=== PATIENT | male | born 1960 | race Caucasian/White ===

== ENCOUNTER 2023-03-11 09:14 | Outpatient (CLI) | payer OTHER, SELFPAY ==
[2023-03-11 09:32] LABS: Basophils Absolute Auto 0.1 K/mm3 (0.0-0.1); Basophils Percent Auto 1.2 % (0.2-1.2); Eosinophils Absolute Auto 0.3 K/mm3 (0-0.3); Eosinophils Percent Auto 3.5 % (0-4.4); Hematocrit 48.3 % (42.0-52.0); Hemoglobin 16.8 g/dL (14.0-18.0); Immature Granulocyte Absolute 0.03 K/mm3 (0.00-0.031); Immature Granulocyte Percent A 0.4 % (0-0.5); Lymphocytes Absolute Auto 1.71 K/mm3 (0.9-3.2); Lymphocytes Percent Auto 21.9 % (18.3-44.2); Mean Corpuscular HGB Conc 34.8 g/dl (32-36); Mean Corpuscular Hemoglobin 31.6 pg (26-34); Mean Platelet Volume 8.7 fl (7.4-10.4); Monocytes Absolute Auto 0.8 K/mm3 (0.1-0.6); Monocytes Percent Auto 10.5 % (2.6-8.5); Neutrophils Absolute Auto 4.9 K/mm3 (1.3-6.7); Neutrophils Percent Auto 62.5 % (45.5-73.1); Platelet Count Result 252 k/mm3 (150-375); Red Blood Count 5.31 M/mm3 (4.6-6.20); Red Cell Distribution Width 12.7 % (11.5-14.5); White Blood Count 7.8 K/mm3 (4.5-10.0)
[2023-03-11 09:35] LABS: Blood Urea Nitrogen 19 mg/dL (8-26); Carbon Dioxide 23 mmol/L (22-30); Chloride 102 mmol/L (98-109); Estimated Glomerular Filt Rate > 60; Glucose 117 mg/dL (70-105); Ionized Calcium (POC) 0.97 mmol/L (1.11-1.31); Potassium 3.8 mmol/L (3.5-4.9); Sodium 138 mmol/L (138-146)
== END 2023-03-11 09:15 | disposition home or self-care (01) ==
LOC: ANHLAB 09:20
PROVIDERS: PCP Internal Medicine; Visit Provider Internal Medicine Hematology & Oncology
DX: D75.1 Secondary polycythemia (principal)
CPT/HCPCS: 36415; 80047; 85025

== ENCOUNTER 2023-12-09 09:13 | Outpatient (CLI) | payer OTHER, SELFPAY ==
[2023-12-09 09:30] LABS: Basophils Absolute Auto 0.1 K/mm3 (0.0-0.1); Eosinophils Absolute Auto 0.2 K/mm3 (0-0.3); Eosinophils Percent Auto 2.8 % (0-4.4); Hematocrit 47.3 % (42.0-52.0); Hemoglobin 16.5 g/dL (14.0-18.0); Immature Granulocyte Absolute 0.02 K/mm3 (0.00-0.031); Immature Granulocyte Percent A 0.3 % (0-0.5); Lymphocytes Absolute Auto 1.75 K/mm3 (0.9-3.2); Lymphocytes Percent Auto 24.2 % (18.3-44.2); Mean Corpuscular HGB Conc 34.9 g/dl (32-36); Mean Corpuscular Hemoglobin 31.6 pg (26-34); Mean Corpuscular Volume 90.6 fl (80-100); Mean Platelet Volume 8.8 fl (7.4-10.4); Monocytes Absolute Auto 0.8 K/mm3 (0.1-0.6); Monocytes Percent Auto 10.8 % (2.6-8.5); Neutrophils Absolute Auto 4.4 K/mm3 (1.3-6.7); Neutrophils Percent Auto 60.9 % (45.5-73.1); Platelet Count Result 269 k/mm3 (150-375); Red Blood Count 5.22 M/mm3 (4.6-6.20); Red Cell Distribution Width 12.8 % (11.5-14.5); White Blood Count 7.2 K/mm3 (4.5-10.0)
[2023-12-09 09:34] LABS: Blood Urea Nitrogen 22 mg/dL (8-26); Carbon Dioxide 22 mmol/L (22-30); Chloride 101 mmol/L (98-109); Estimated Glomerular Filt Rate > 60; Glucose 141 mg/dL (70-105); Ionized Calcium (POC) 1.13 mmol/L (1.11-1.31); Potassium 3.9 mmol/L (3.5-4.9); Sodium 137 mmol/L (138-146)
== END 2023-12-09 09:14 | disposition home or self-care (01) ==
LOC: ANHLAB 09:14
PROVIDERS: PCP Internal Medicine; Visit Provider Internal Medicine Hematology & Oncology
DX: D75.1 Secondary polycythemia (principal)
CPT/HCPCS: 36415; 80047; 85025

== ENCOUNTER 2024-12-10 08:03 | Outpatient (CLI) | payer OTHER, SELFPAY ==
--- OUTSIDE RECORDS SUMMARY | 2024-12-10 08:07 | XMS_ITS | Clinical Summary ---
Author Organization [facility] Address [address] [place] [address] Care Team Providers Care Environmental Analyst Name Role Phone Ada Apple MD Primary Care Provider Allergies No known active allergies Medications lisinopriL (PRINIVIL) 2.5 mg tablet lisinopril 2.5 mg tablet 09/02/19 20 Active hydroCHLOROth iazide (MICROZIDE) 12.5 mg capsule hydrochlorothiazide 12.5 mg capsule 01/20/20 18 Active metoprolol succinate (TOPROL XL) 25 mg Extended Release 24 hour tablet metoprolol succinate ER 25 mg tablet,extended release 24 hr 01/20/20 18 Active metFORMIN (GLUCOPHAGE) 500 mg tablet metformin 500 mg tablet 1 TABLETBY MOUTH EVERY OTHER DAY 01/28/20 18 Active rosuvastatin (CRESTOR) 40 mg tablet ROSUVASTATIN 40 MG* TAB NOVA 10/08/19 19 Active aspirin (ECOTRIN EC) 81 mg Tablet, Delayed Release (E.C.) Take by mouth. 01/19/20 19 Active nut.tx.gluc intol,lf,soy- fiber (Boost Glucose ControL) 0.06-1.1 gram-kcal/mL Liquid Boost 1 drink daily Active ezetimibe (ZETIA) 10 mg tablet 02/13/20 22 Active albuterol sulfate 90 mcg/Actuation inhaler albuterol sulfate HFA 90 mcg/actuation aerosol inhaler Active Active Problems Problem Noted Date Diagnosed Date Erythrocytosis 09/29/2020 Encounters Date Type Department Care Team Description 12/09/2024 Orders Only [facility] - [place] [address] [place] [id number] Rene Garcia MD Erythrocytosis (Primary Dx) from Last 3 Months Family History Medical History Relation Name Comments Diabetes Brother Lymphoma Brother Heart Disease Father Heart Disease Mother Relation Name Status Comments Brother Alive Father Mother Sister Alive Social History Tobacco Use Types Packs/Day Years Used Date Smoking Tobacco: Every Day Cigarettes 1 41 Started: 12/09/1983 Smokeless Tobacco: Never Tobacco Cessation:Ready to Q uit: Not Asked; Counseling Given: Not Answered Alcohol Use Standard Drinks/Week Comments Yes 0 (1 standard drink = 0.6 oz pur e alcohol) occasional Sex and Gender Information Value Date Recorded Sex Assigned at Not on file Legal 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 Gender Identity Not on file Sexual Orientation Not on file Last Filed Vital Signs Vital Sign Reading Time Taken Comments Blood Pressure 127/90 12/09/2023 9:33 AM CDT Pulse 74 12/09/2023 9:32 AM CDT Temperature 35.7 C (96.3 F) 12/09/2023 9:32 AM CDT Respiratory Rate 14 12/09/2023 9:32 AM CDT Oxygen Saturation 97% 12/09/2023 9:32 AM CDT Inhaled Oxygen Concentration - - Weight 81.6 kg (180 lb) 12/09/2023 9:32 AM CDT Height 172.7 cm (5' 8 ) 03/07/2022 3:33 PM CDT Body Mass Index 27.37 03/07/2022 3:33 PM CDT Plan of Treatment Upcoming Encounters Date Type Department Care Team (Late st Contact Info) Description 12/10/2024 8:30 AM CDT Office Visit [facility] - [place] [address] [facility] [address] [place] [address] Rene Garcia MD [address] [facility] [address] [place] [address] Health Maintenance Due Date Last Done Comments DIABETES ANNUAL FOOT EXAM 1978 DIABETES ANNUAL RETINAL EXAM 1978 DIABETES HBA1C Q 6 MONTHS 1978 DIABETES MICROALBUMIN ANNUAL SCREEN 1978 LDL CHOLESTEROL ANNUAL 1978 DTAP/TDAP/TD VACCINES (1 - Tdap) 1979 COLORECTAL SCREENING 2005 Colorectal Cancer Screening 2005 FIT-DNA Q 3 years 2005 FIT/FOBT Q 1 year 2005 Flex Sig/CT Colonography Q 5 years 2005 Lung Cancer Screening 2010 ZOSTER VACCINE (1 of 2) 2010 INFLUENZA VACCINE (#1) 2024 RSV VACCINE (60+ or ) (1 - 1-dose 75+ series) 2035 Insurance [employer] CHOICE POS II Care Teams Environmental Analyst Relationship Specialty Start Date End Date Ada Apple MD PCP - General Internal Medicine 09/29/20
--- OUTSIDE RECORDS SUMMARY | 2024-12-10 08:07 | XMS_ITS | Data Portability ---
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 His flare-up going up and down a hill numerous times in late May is fairly typical for patellofemoral symptom exacerbation. I have recommended he consider again a course of physical therapy and he is going to pursue this. We talked about the option of a cortisone shot today but since his symptoms are minimal he is content to observe. We can always give him a cortisone shot in the future if he has a flare-up of symptoms I am happy to see him back as needed. Hopefully with course of physical therapy improving the flexibility of his quadriceps and hamstrings and improving strength of his hip abduction external rotation core strengthening he may have less problems with patellofemoral joint flare-ups in the future. Recheck p.r.n.. 20 minutes were spent in care of this patient more than half the time spent in [id number] care. [email or web address] Not available 08/24/2023 19:28:13 09/29/2023 09/29/2023 Assessment: Nicotine smoke: 1 ppd 1977-present = 46 pack years Cough Dyspnea Mild COPD Plan: The following were reviewed and explained to the patient: primary care/referral note PFT 10/16/17 FEV1 2.94 L (89%), BD 280 mL = 10%, TLC 5.93 L (96%), RV 1.85 L (84%), DLCO 100%, DLCO/VA 115% Nicotine cessation counseling provided for 4 minutes. [place] for quitting nicotine include getting ready, getting support and encouragement, learning new skills and behaviors and being prepared to handle slips. Tips for dealing with cravings provided. Prevention of subsequent illnesses from nicotine addiction discussed. Comorbidities include but are not limited to hypertension, cerebrovascular disease, coronary heart disease, congestive heart failure, hyperlipidemia, COPD/asthma, peptic ulcer disease, esophagitis/gastri tis, and osteoporosis. Therapy options offered include: Quitting by total abstinence Receiving nicotine replacement therapy Undergoing hypnosis Filling a bupropion or varenicline prescription Enrolling in Quit For Life program Registering at www.[email or web address] Making a call to 1-340-GLNW-NOW ( ). A strong, clear, personalized message was given to the patient to quit smoking. The patient was urged to set a quit date. We discussed patient's barriers to quitting and I will be of assistance when patient is ready to quit. I encouraged patient to inform friends and family of plans to quit with a request for support. I encouraged the patient to remove all cigarettes from the environment. We reviewed any previous quit attempts and lessons learned from them. I encouraged total abstinence from smoking and advised the patient that drinking alcohol and/or associating with other smokers are associated with failure or relapse. Patient can enroll in [facility]'s smoking cessation class through Nichole Conti RN at . Enrollment is free and classes are held every friday of the month from 1:30 pm to 2:30 pm at the conference room next to the cafeteria on the ground floor. The [employer] recommends annual screening for lung cancer with low-dose computed tomography (LDCT) for people aged 50 to 80 years old who smoke or formerly smoked and have a 20-year or greater pack-year history. Screening is no longer discontinued even when a person has not smoked for 15 years. Patient declined LDCT as he had a copay of $500 with his insurance the last time the procedure was done. Cough/Dyspnea workup will be done as follows: Respiratory allergen panel for [facility] Serum IgE Serum total IgG, IgG1, IgG2, IgG3, IgG4 Yjkpx-[id number] n phenotype and level TB stimulated gamma interferon B-type natriuretic peptide (BNP) Eosinophil count Complete pulmonary function testing (PFT) Chest x-ray 2 views Continue albuterol HFA as needed. The patient does not know how to accurately administer the inhaler. Today, the patient was shown how to take this medication. The proper technique for delivering this medication was instructed. The patient expressed a clear understanding and demonstrated back how to use this medication. Without the proper technique, the patient will not reap the benefits of the treatment as the contents of the inhaler will not reach the lower airways as intended to be. Adherence to therapy is advocated. Nonadherence may lead to treatment failure, further progression of the condition, and other complications. Hospitals admissions are often the result of individuals not taking prescription medications accurately. Alternatively, greater adherence to medication regimens have shown to lower rates of hospitalization and decrease total medical costs in patients with chronic medical conditions. Advocated influenza vaccination annually and pneumonia vaccination IRAIDA. Advocated weight loss through diet and exercise. Patient's ideal body weight according to height and gender is up to 165 lbs. Encouraged patient to adjust caloric intake to maintain/achieve ideal body weight, emphasizing on fruits, vegetables, whole grains, and fat-free or low-fat products. These include lean meats, poultry, fish, beans, eggs, and nuts and foods that are low in saturated fats, trans-fats, cholesterol, salt (sodium), and glycemic index. Stressed the importance of regular exercise up to the patient's capacity limits. In this case, we recommend 20 min daily walking, 2 days a week of resistance training. Patient to monitor BP daily and bring records to PCP for further management. Follow-up: 1 week after PFT Not available 09/29/2023 09:17:47 01/06/2024 01/06/2024 07/08/2022: Urine micro alb 6.8 A1C 5.9 CBC: WNL PSA 1.28 TSH: WNL CMP: Gluc 115, BUN 23 LIPIDS: WNL 01/03/2023: A1C 5.7 Gluc 116 07/03/2023: PSA 1.33 A1C 5.9 Gluc 118, BUN 24H 01/01/2024: A1C 5.9 Gluc 114, BUN 22 [email or web address] Not available 01/04/2024 13:23:56 02/24/2024 02/24/2024 Assessment: Nicotine smoke: 1 ppd 1977-present = 46 pack years Mild COPD Plan: The following were reviewed and explained to the patient: Lab data 09/30/23 multiple environmental allergies Chest 2 views 09/30/23 wnl PFT 10/16/17 FEV1 2.94 L (89%), BD 280 mL = 10%, TLC 5.93 L (96%), RV 1.85 L (84%), DLCO 100%, DLCO/VA 115% PFT 02/24/24 FEV1 2.30 L (73%), BD 200 mL = 9%, TLC 5.27 L (86%), RV 1.75 L (77%), DLCO 87%, DLCO/VA 98% Nicotine cessation counseling provided. [place] for quitting nicotine include getting ready, getting support and encouragement, learning new skills and behaviors and being prepared to handle slips. Tips for dealing with cravings provided. Prevention of subsequent illnesses from nicotine addiction discussed. Comorbidities include but are not limited to hypertension, cerebrovascular disease, coronary heart disease, congestive heart failure, hyperlipidemia, COPD/asthma, peptic ulcer disease, esophagitis/gastri tis, and osteoporosis. Therapy options offered include: Quitting by total abstinence Receiving nicotine replacement therapy Undergoing hypnosis Filling a bupropion or varenicline prescription Enrolling in Quit For Life program Registering at [email or web address].digitalbox Making a call to 9-327-DQDK-NOW ( ). A strong, clear, personalized message was given to the patient to quit smoking. The patient was urged to set a quit date. We discussed patient's barriers to quitting and I will be of assistance when patient is ready to quit. I encouraged patient to inform friends and family of plans to quit with a request for support. I encouraged the patient to remove all cigarettes from the environment. We reviewed any previous quit attempts and lessons learned from them. I encouraged total abstinence from smoking and advised the patient that drinking alcohol and/or associating with other smokers are associated with failure or relapse. Patient can enroll in [facility]'s smoking cessation class through Nichole Conti RN at . Enrollment is free and classes are held every friday of the month from 1:30 pm to 2:30 pm at the conference room next to the cafeteria on the ground floor. The [employer] recommends annual screening for lung cancer with low-dose computed tomography (LDCT) for people aged 50 to 80 years old who smoke or formerly smoked and have a 20-year or greater pack-year history. Screening is no longer discontinued even when a person has not smoked for 15 years. Patient declined LDCT as he had a copay of $500 with his insurance the last time the procedure was done. Complete PFTs one week before return. Start Spiriva Respimat 2.5 mcg 2 puffs daily. Continue albuterol HFA as needed. The patient does not know how to accurately administer the inhalers. Today, the patient was shown how to take these medications. The proper technique for delivering these medications was instructed. The patient expressed a clear understanding and demonstrated back how to use these medications. Without the proper technique, the patient will not reap the benefits of these medications as the contents will not reach the lower airways as intended to be. Adherence to therapy is advocated. Nonadherence may lead to treatment failure, further progression of the condition, and other complications. Hospitals admissions are often the result of individuals not taking prescription medications accurately. Alternatively, greater adherence to medication regimens have shown to lower rates of hospitalization and decrease total medical costs in patients with chronic medical conditions. Advocated influenza vaccination annually and pneumonia vaccination IRAIDA. Advocated weight loss through diet and exercise. Patient's ideal body weight according to height and gender is up to 165 lbs. Encouraged patient to adjust caloric intake to maintain/achieve ideal body weight, emphasizing on fruits, vegetables, whole grains, and fat-free or low-fat products. These include lean meats, poultry, fish, beans, eggs, and nuts and foods that are low in saturated fats, trans-fats, cholesterol, salt (sodium), and glycemic index. Stressed the importance of regular exercise up to the patient's capacity limits. In this case, we recommend 20 min daily walking, 2 days a week of resistance training. Patient to monitor BP daily and bring records to PCP for further management. Follow-up: 1 year, February 2025 Not available 02/24/2024 10:55:32 07/06/2024 07/06/2024 07/08/2022: Urine micro alb 6.8 A1C 5.9 CBC: WNL PSA 1.28 TSH: WNL CMP: Gluc 115, BUN 23 LIPIDS: WNL 01/03/2023: A1C 5.7 Gluc 116 07/03/2023: PSA 1.33 A1C 5.9 Gluc 118, BUN 24H 01/01/2024: A1C 5.9 Gluc 114, BUN 22 06/30/2024: A1c 6.1 Gluc 119, BUN 21 H/H 17.2/50.7 [email or web address] Not available 07/04/2024 15:18:22 Plan of Treatment Reminders Order Date Submit Date Provider Last Modified By Organization Details Last Modified Time Details Appointments Any 15 2024 08:30A Lance patel MD Not available Not available Not available Any 15 2024 08:00A M Annmarie Britton MD Not available Not available Not available Lab glycohemo globin, total, blood [address] (Lab), [address] [place], [address], 07/06/2024 09:59:50 microalbu min, urine [address] (Lab), [address] [place], [address], 07/06/2024 09:59:50 lipid panel, serum [address] (Lab), [address] [place], [address], 07/06/2024 09:59:49 TSH, serum or plasma [address] (Lab), [address] [place], [address], 07/06/2024 09:59:49 CBC w/ auto diff [address] (Lab), [address] [place], [address], 07/06/2024 09:59:49 CMP, serum or plasma [address] (Lab), [address] [place], [address], 07/06/2024 09:59:50 glycohemo globin, total, blood 2023 024 [facility] (Lab), [address] [place], [address], 06/30/2024 19:26:42 microalbu min, urine 2023 024 [facility] (Lab), [address] [place], [address], 06/30/2024 11:22:59 lipid panel, serum 2023 024 [facility] (Lab), [address] [place], [address], 06/30/2024 11:20:51 TSH, serum or plasma 2023 024 [facility] (Lab), [address] [place], [address], 06/30/2024 11:35:30 CBC w/ auto diff 2023 024 [facility] (Lab), [address] [place], [address], 06/30/2024 10:48:44 CMP, serum or plasma 2023 024 [facility] (Lab), [address] [place], [address], 06/30/2024 11:20:56 alpha-1-a ntitrypsi n (aat) phenotype , serum 2023 024 [facility] (Lab), [address] [place], [address], 10/09/2023 16:30:08 BNP (B-type natriuret ic peptide), serum or plasma 2023 024 [facility] (Lab), [address] [place], [address], 09/30/2023 11:57:31 ige, total, serum 2023 024 [email or web address] 5 [facility] (Lab), [address] [place], [address], 12/16/2023 11:25:45 tb (M tuberculo sis), ifn-gamma ann, blood 2023 024 [email or web address] 5 [facility] (Lab), [address] [place], [address], 12/16/2023 11:25:45 eosinophi l count, manual, blood (OBS) 2023 024 [email or web address] 5 [facility] (Lab), [address] [place], [address], 12/16/2023 11:25:45 [address]cl[address] s 1+2+3+4, serum 2023 024 [email or web address] 5 [facility] (Lab), [address] [place], [address], 12/16/2023 11:25:45 respirato ry allergen panel - [facility] 2023 024 [email or web address] 5 [facility] (Lab), [address] [place], [address], 12/16/2023 11:25:45 respirato ry allergen panel - [facility] b 2023 024 [email or web address] 5 [facility] (Lab), [address] [place], [address], 12/16/2023 11:25:45 Referral hematolog ist referral 2023 024 [email or web address] Rene Garcia MD, [address], [place], [address], 07/06/2024 19:13:11 cardiolog ist referral 2023 024 [place], [address] Yoanna Lemons, [address], [address], 07/06/2024 19:13:10 podiatris t referral - Please call patient to schedule. 2023 024 [email or web address] Joshua Carr DPM, [address], [place], [address], 10/12/2024 09:21:01 hematolog ist referral 2023 024 [email or web address] Rene Garcia MD, [address], [place], [address], 08/05/2024 08:52:20 cardiolog ist referral 2023 024 [email or web address] [place], [address] Yoanna Lemons, [address], [place], [address], 07/05/2024 09:07:54 podiatris t referral 2023 024 [email or web address] Carr DPM, [address], [address], [place], [address], 10/12/2024 09:21:00 pulmonolo gist referral 2023 024 [email or web address] Annmarie Britton MD, [address] [place], [address], 08/05/2024 08:52:19 Procedures None recorded. Surgeries None recorded. Imaging XR, chest, 2 view 2023 024 [facility] ([facility]), [address] [place], [address], 09/30/2023 11:16:55 Medication Orders albuterol sulfate HFA 90 mcg/actua tion aerosol inhaler 2023 024 [facility] #[id number], [address], [place], [address], 07/06/2024 09:21:43 Spiriva Respimat 2.5 mcg/actua tion solution for inhalatio n [id number], [address], [place], [address], 07/06/2024 09:22:14 amoxicill in 875 mg-potass ium clavulana te 125 mg tablet 2023 024 [email or web address] [id number], [address], [place], [address], 02/24/2024 10:18:59 Patient TargetsNo targets recorded. Patient Instructions Encounter Date Encounter Id Patient Instructions Last Modified By Organization Details Last Modified Time 09/29/2023 [id number] complete PFT w/ post bronchodilator spirometry* - No Auth Required [place] Not available 02/27/2024 12:49:15 02/24/2024 [id number] complete PFT w/ post bronchodilator spirometry* Not available 02/24/2024 10:55:50 Reason for Referral Linux System Administrator Referral for Type 2 diabetes mellitus without complication Referring Physician: Ada Apple, Internal Medicine, Encounter Date: 01/06/2024 Upholsterer Assembly Line Referral for Es sential hypertension Referring Physician: Ada Apple Internal Medicine, Encounter Date: 01/06/2024 Bottom Loader Referral for C igarette smoker Referring Physician: Ada Apple Internal Medicine, Encounter Date: 01/06/2024 Referring Physician: Ada Apple Internal Medicine, Encounter Date: 01/06/2024 Linux System Administrator Referral for Type 2 diabetes mellitus without complication Please call patient to schedule. Referring Physician: Ada Apple Internal Medicine, Encounter Date: 07/06/2024 Upholsterer Assembly Line Referral for Es sential hypertension Referring Physician: Ada Apple Internal Medicine, Encounter Date: 07/06/2024 Referring Physician: Ada Apple Internal Medicine, Encounter Date: 07/06/2024 Results Created Date Observation Date Name Description Value Unit Range Abnormal Flag Note LastModifiedBy Organization Detail LastModifiedTime 01/01/20 24 01/01/2024 CBC/C OMPLE TE BLD COUNT W/DIF F white blood cells 7.6 x10'3 /uL 4.2-10 .8 Not Available [facility] (Lab) [address] [place], [address], 01/01/2024 10:58:38 01/01/20 24 01/01/2024 CBC/C OMPLE TE BLD COUNT W/DIF F red blood cells 5.37 x10'6 /uL 4.10-5 .80 Not Available [facility] (Lab) [address] [place], [address], 01/01/2024 10:58:38 01/01/20 24 01/01/2024 CBC/C OMPLE TE BLD COUNT W/DIF F hemoglobin 17.0 g/dL 13.2-1 7.0 Not Available [facility] (Lab) [address] [place], [address], 01/01/2024 10:58:38 01/01/20 24 01/01/2024 CBC/C OMPLE TE BLD COUNT W/DIF F hematocrit 49.7 % 39.3-5 0.0 Not Available [facility] (Lab) [address] [place], [address], 01/01/2024 10:58:38 01/01/20 24 01/01/2024 CBC/C OMPLE TE BLD COUNT W/DIF F mean red cell volume 92.6 fL 80.0-9 7.0 Not Available [facility] (Lab) [address] [place], [address], 01/01/2024 10:58:38 01/01/20 24 01/01/2024 CBC/C OMPLE TE BLD COUNT W/DIF F mean red cell hemoglobin 31.7 pg 27.0-3 3.0 Not Available [facility] (Lab) [address] [place], [address], 01/01/2024 10:58:38 01/01/20 24 01/01/2024 CBC/C OMPLE TE BLD COUNT W/DIF F mean RBC HGB concentratio n 34.2 g/dL 31.0-3 6.0 Not Available [facility] (Lab) [address] [place], [address], 01/01/2024 10:58:38 01/01/20 24 01/01/2024 CBC/C OMPLE TE BLD COUNT W/DIF F red cell distribution width 12.7 % 11.8-1 5.5 Not Available [facility] (Lab) [address] [place], [address], 01/01/2024 10:58:38 01/01/20 24 01/01/2024 CBC/C OMPLE TE BLD COUNT W/DIF F platelets 273 x10'3 /uL 150-40 0 Not Available [facility] (Lab) [address] [place], [address], 01/01/2024 10:58:38 01/01/20 24 01/01/2024 CBC/C OMPLE TE BLD COUNT W/DIF F mean platelet volume 9.4 fL 9.0-12 .4 Not Available [facility] (Lab) [address] [place], [address], 01/01/2024 10:58:38 01/01/20 24 01/01/2024 CBC/C OMPLE TE BLD COUNT W/DIF F neutrophils 63.4 % 39.0-7 2.0 Not Available [facility] (Lab) [address] [place], [address], 01/01/2024 10:58:38 01/01/20 24 01/01/2024 CBC/C OMPLE TE BLD COUNT W/DIF F lymphocytes 20.5 % 16.0-4 7.0 Not Available [facility] (Lab) [address] [place], [address], 01/01/2024 10:58:38 01/01/20 24 01/01/2024 CBC/C OMPLE TE BLD COUNT W/DIF F monocytes 10.3 % 5.0-12 .0 Not Available [facility] (Lab) [address] [place], [address], 01/01/2024 10:58:38 01/01/20 24 01/01/2024 CBC/C OMPLE TE BLD COUNT W/DIF F eosinophils 4.1 % 1.0-7. 0 Not Available [facility] (Lab) [address] [place], [address], 01/01/2024 10:58:38 01/01/20 24 01/01/2024 CBC/C OMPLE TE BLD COUNT W/DIF F basophils 1.2 % 0.0-2. 0 Not Available [facility] (Lab) [address] [place], [address], 01/01/2024 10:58:38 01/01/20 24 01/01/2024 CBC/C OMPLE TE BLD COUNT W/DIF F immature granulocytes 0.5 % 0.00-0 .50 Not Available [facility] (Lab) [address] [place], [address], 01/01/2024 10:58:38 01/01/20 24 01/01/2024 CBC/C OMPLE TE BLD COUNT W/DIF F neutrophils, absolute count 4.82 x10'3 /uL 1.5-8. 0 Not Available [facility] (Lab) [address] [place], [address], 01/01/2024 10:58:38 01/01/20 24 01/01/2024 CBC/C OMPLE TE BLD COUNT W/DIF F lymphocytes, absolute count 1.56 x10'3 /uL 1.07-3 .43 Not Available [facility] (Lab) [address] [place], [address], 01/01/2024 10:58:38 01/01/20 24 01/01/2024 CBC/C OMPLE TE BLD COUNT W/DIF F monocytes, absolute count 0.78 x10'3 /uL 0.29-0 .99 Not Available [facility] (Lab) [address] [place], [address], 01/01/2024 10:58:38 01/01/20 24 01/01/2024 CBC/C OMPLE TE BLD COUNT W/DIF F eosinophils, absolute count 0.31 x10'3 /uL 0.02-0 .53 Not Available [facility] (Lab) [address] [place], [address], 01/01/2024 10:58:38 01/01/20 24 01/01/2024 CBC/C OMPLE TE BLD COUNT W/DIF F basophils, absolute count 0.09 x10'3 /uL 0.01-0 .08 high Not Available [facility] (Lab) [address] [place], [address], 01/01/2024 10:58:38 01/01/20 24 01/01/2024 CBC/C OMPLE TE BLD COUNT W/DIF F immature granulocytes ,absolute 0.04 x10'3 /uL 0.00-0 .05 Not Available [facility] (Lab) [address] [place], [address], 01/01/2024 10:58:38 01/01/20 24 01/01/2024 CBC/C OMPLE TE BLD COUNT W/DIF F nucleated red blood cells 0.0 % -0 Not Available [facility] (Lab) [address] [place], [address], 01/01/2024 10:58:38 01/01/20 24 01/01/2024 CBC/C OMPLE TE BLD COUNT W/DIF F NRBC# 0.00 x10'3 /uL Not Available [facility] (Lab) [address] [place], [address], 01/01/2024 10:58:38 01/01/20 24 01/01/2024 MICRO ALBUM IN RANDO M URINE microalbumin , urine <6.0 mg/L 0.0-16 .6 Not Available [facility] (Lab) [address] [place], [address], 01/01/2024 11:03:22 01/01/20 24 01/01/2024 LIPID PANEL cholesterol 106 mg/dL 140-19 9 low NIH DOUGLAS NSUS RECOM MENDA TION FOR PRAVIN STERO L: ADULT CHILD LOW RISK: <200 <170 BORDE RLINE : <200- 239 ----- HIGH RISK: >240 >200 Not Available [facility] (Lab) [address] [place], [address], 01/01/2024 11:14:42 01/01/20 24 01/01/2024 LIPID PANEL triglyceride s 102 mg/dL 0-150 NIH DOUGLAS NSUS REPOR T RECOM MENDA TION FOR TRIGL YCERI YAHIR: ADULT CHILD LOW RISK: <150 ----- BODER LINE: 150-1 99 ----- HIGH RISK: >200 ----- Not Available [facility] (Lab) [address] [place], [address], 01/01/2024 11:14:42 01/01/20 24 01/01/2024 LIPID PANEL HDL cholesterol 46 mg/dL 40- Not Available [facility] (Lab) [address] [place], [address], 01/01/2024 11:14:42 01/01/20 24 01/01/2024 LIPID PANEL LDL cholesterol, calculated 40 mg/dL 0-130 NIH DOUGLAS NSUS REPOR T RECOM MENDA TIONS FOR LDL: ADULT CHILD LOW RISK <130 <110 (OPTI MAL LDL) <100 ----- DAWSONDE RLINE : 130-1 59 ----- HIGH RISK: >160 >130 A TRIGL YCERI DE RESUL T >400 INVAL IDATE S THE CALCU LATIO N FOR LDL FRACT IONAT ION - THE LDL RESUL T WILL NOT BE REPOR VALENCIA. Not Available [facility] (Lab) [address] [place], [address], 01/01/2024 11:14:42 01/01/20 24 01/01/2024 COMPR EHENS KAYCE METAB OLIC PANEL sodium 136 mmol/ L 137-14 5 low Not Available [facility] (Lab) [address] [place], [address], 01/01/2024 11:14:47 01/01/20 24 01/01/2024 COMPR EHENS KAYCE METAB OLIC PANEL potassium 4.3 mmol/ L 3.5-5. 1 Not Available [facility] (Lab) [address] [place], [address], 01/01/2024 11:14:47 01/01/20 24 01/01/2024 COMPR EHENS KAYCE METAB OLIC PANEL chloride 105 mmol/ L 98-107 Not Available [facility] (Lab) [address] [place], [address], 01/01/2024 11:14:47 01/01/20 24 01/01/2024 COMPR EHENS KAYCE METAB OLIC PANEL carbon dioxide 25 mmol/ L 22-30 Not Available [facility] (Lab) [address] [place], [address], 01/01/2024 11:14:47 01/01/20 24 01/01/2024 COMPR EHENS KAYCE METAB OLIC PANEL anion gap 10.3 mmol/ L 14-22 low Not Available [facility] (Lab) [address] [place], [address], 01/01/2024 11:14:47 01/01/20 24 01/01/2024 COMPR EHENS KAYCE METAB OLIC PANEL glucose 114 mg/dL 70-99 high Not Available [facility] (Lab) [address] [place], [address], 01/01/2024 11:14:47 01/01/20 24 01/01/2024 COMPR EHENS KAYCE METAB OLIC PANEL BUN 22 mg/dL 8-19 high Not Available [facility] (Lab) [address] [place], [address], 01/01/2024 11:14:47 01/01/20 24 01/01/2024 COMPR EHENS KAYCE METAB OLIC PANEL creatinine 1.04 mg/dL 0.66-1 .25 Not Available [facility] (Lab) [address] [place], [address], 01/01/2024 11:14:47 01/01/20 24 01/01/2024 COMPR EHENS KAYCE METAB OLIC PANEL GFR >60 Refer ence Range : [place] ge GFR Healt hy Adult : >60 mL/mi n/1.7 3 m2 Chron ic Kidne y Disea se: 15-60 mL/mi n/1.7 3 m2 Kidne y Failu re: <15/m L/min /1.73 m2 www.n iddk. nih.g ov The MDRD study equat ion has not been valid ated in child astrid <18 years of age; pregn ant women ; the elder ly >85 years of age; or in some racia l or ethni c subgr oups, such as Hispa nics. Outsi de the valid ated carolyn eters , estim ated GFR is less accur ate, requi ring clini delbert judgm ent on a case- by-ca se basis . Clini delbert inter preta tion for other races and ages must be made by the clini khadar. The MDRD study equat ion has not been valid ated for the evalu ation of serum creat inine relat ed to nutri shahzad l statu s or medic ation usage . For perso ns <18 years of age, a pedia tric GFR calcu lator is avail able on the [facility] websi te: https ://kj sellers.shanti garcía/beny mirandaal s/levo qi/gf r_cal culat or Not Available [facility] (Lab) [address] [place], [address], 01/01/2024 11:14:47 01/01/20 24 01/01/2024 COMPR EHENS KAYCE METAB OLIC PANEL alkaline phosphatase 92 U/L 38-126 Not Available [facility] (Lab) [address] [place], [address], 01/01/2024 11:14:47 01/01/20 24 01/01/2024 COMPR EHENS KAYCE METAB OLIC PANEL alanine aminotransfe rase 29 U/L 0-50 Not Available [facility] (Lab) [address] [place], [address], 01/01/2024 11:14:47 01/01/20 24 01/01/2024 COMPR EHENS KAYCE METAB OLIC PANEL aspartate aminotransfe rase 29 U/L 15-46 Not Available [facility] (Lab) [address] [place], [address], 01/01/2024 11:14:47 01/01/20 24 01/01/2024 COMPR EHENS KAYCE METAB OLIC PANEL bilirubin, total 0.70 mg/dL 0.20-1 .30 Not Available [facility] (Lab) [address] [place], [address], 01/01/2024 11:14:47 01/01/20 24 01/01/2024 COMPR EHENS KAYCE METAB OLIC PANEL calcium 9.2 mg/dL 8.4-10 .2 Not Available [facility] (Lab) [address] [place], [address], 01/01/2024 11:14:47 01/01/20 24 01/01/2024 COMPR EHENS KAYCE METAB OLIC PANEL total protein 6.6 g/dL 6.3-8. 2 Not Available [facility] (Lab) [address] [place], [address], 01/01/2024 11:14:47 01/01/20 24 01/01/2024 COMPR EHENS KAYCE METAB OLIC PANEL albumin 4.1 g/dL 3.0-4. 4 Not Available [facility] (Lab) [address] [place], [address], 01/01/2024 11:14:47 01/01/20 24 01/01/2024 COMPR EHENS KAYCE METAB OLIC PANEL globulin 2.5 g/dL 2.6-4. 2 low Not Available [facility] (Lab) [address] [place], [address], 01/01/2024 11:14:47 01/01/20 24 01/01/2024 COMPR EHENS KAYCE METAB OLIC PANEL A/G ratio 1.6 ratio 1.0-2. 0 Not Available [facility] (Lab) [address] [place], [address], 01/01/2024 11:14:47 01/01/20 24 01/01/2024 TSH W/REF ABDOULAYE FT4 TSH with reflex free T4 1.860 uIU/m L 0.465- 4.680 Not Available [facility] (Lab) [address] [place], [address], 01/01/2024 11:54:04 01/01/20 24 01/01/2024 HEMOG LOBIN A1C HA1C 5.9 % 4.0-6. 0 Diabe ruby Scree florina Crite ric: <5.7% Consi stent with absen ce of diabe ruby 5.7-6 .4% Consi stent with incre ased risk for diabe ruby (pred iabet es) >OR=6 .5% Consi stent with diabe ruby REFER ENCE: Diabe ruby Care 2016, 39(Cervantes ppl.1 ):s13 -s22 Not Available [facility] (Lab) [address] [place], [address], 01/01/2024 11:57:03 09/24/19 24 10/16/2017 compl ete PFT w/ post [facility] hodil ator zoe metry * No observ ation record ed. BARCODE Not Available 2023 10:42:48 09/30/19 24 09/30/2023 XR, chest , 2 view No observ ation record ed. [facility] [address] [place], [address], 09/30/2023 13:31:17 09/30/19 24 09/30/2023 imagi ng/di agnos tic resul t No observ ation record ed. LOLA [facility] [address] [place], [address], 09/30/2023 11:18:10 02/27/20 24 02/24/2024 compl ete PFT w/ post [facility] hodil ator zoe metry * No observ ation record ed. [facility] ([employer]) [address] [place], [address], 02/27/2024 12:49:15 Result Notes None recorded. Problems Name Problem SNOMED Code Status Onset Date Resolution Date Notes Provider Name and Address Organization Details Recorded Time Benign prostatic hyperplas ia with outflow obstructi on 598098244 Active Not Available [facility] 3 03:14:16 Diverticu litis 051979207 Active 2016 had part of colon removed around 2009 and has no problems since Not Available [facility] 3 03:14:16 Hyperlipi demia 45942857 Active Not Available [facility] 3 03:14:16 Essential hypertens ion 12449561 Active Not Available [facility] 3 03:14:16 Diabetes mellitus 39727518 Active 2019 Not Available [facility] 3 03:14:16 Generaliz ed anxiety disorder 46837354 Active 2022 Not Available [facility] 3 03:14:16 Periphera l arterial occlusive disease 140255452 Active 2022 Not Available [facility] 3 03:14:16 Onychomyc osis of toenails 960918115 Active 2022 Not Available [facility] 3 03:14:16 Osteoarth ritis of right knee joint 79089603665 9100 Active 2023 CHRISTOPHE Douglas, [employer] 4 09:45:06 Smoker 88561164 Active 2023 Annmarie Britton MD [address], [place], [address] , [employer] 4 09:37:50 Erythrocy tosis 759276658 Active 2023 Ada molina MD [address], [place], [address] , [place] [facility] 4 13:22:47 Mild chronic obstructi ve pulmonary disease 059656724 Active 2023 Annmarie Britton MD [address], [address], [place], [address] , [place] [facility] 4 10:45:22 Pain of right knee joint 98924469599 4100 Active 2023 Ada molina MD [address], [place], [address] , [place] [facility] 4 15:16:02 Cigarette smoker 32516482 Active 2023 Ada molina MD [address], [address], [place], [address] , [place] [facility] 4 15:16:02 Periphera l vascular disease 620927096 Active 2023 Ada molina MD [address], [place], [address] , [place] [facility] 4 15:16:02 Type 2 diabetes mellitus without complicat ion 414388538 Active 2023 Ada molina MD [address], [place], [address] , [place] [facility] 4 15:16:02 Blood in urine 67428034 Active 2023 Ada molina MD [address], [place], [address] , [place] [facility] 4 15:16:02 Oral cyst 83354099219 99796 Active 2023 Ada molina MD [address], [place], [address] , [place] [facility] 15:16:02 Notes:Medical History: Anxie ty COVID infections 04/2023, 02/2024 Rhinitis to multiple environmental allergens IgE 19 IU/mL Eosinophils 340/uL Nicotine use Mild COPD Hypertension EF 65% Hyperlipidemia T2DM CAD Diverticulosis/Diverticulitis BPH Right knee OA PAD Onychomycosis Procedure History: Hemicolectomy for diverticulitis 2004 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 Procedures Surgical History Date Name Laterality Status Provider Name and Address Organization Details Recorded Time Colon Surgery completed Not Available [facility] 10/02/2022 05:57:46 Imaging Results Imaging Date Name Status LastModified by Organization Details LastModified Time 10/16/2017 complete PFT w/ post bronchodilator spirometry* completed [facility] Information not available 09/24/2023 10:42:48 09/30/2023 XR, chest, 2 view completed [address] [place], [address], 09/30/2023 13:31:17 09/30/2023 imaging/diagnostic result active [facility] [address] [place], [address], 09/30/2023 11:18:10 02/24/2024 complete PFT w/ post bronchodilator spirometry* completed [facility] ([employer]) [address] [place], [address], 02/27/2024 12:49:15 Procedure Notes None recorded. Medical Equipment None Reported. Allergies No known drug allergies Medications Name Sig Start Date Stop Date Status Note LastModified by Organization Details LastModified Time amoxicill in 500 mg capsule 05/29 completed Not Available Not Available Not Available metformin 500 mg tablet TAKE 1 TABLET BY MOUTH EVERY OTHER DAY active Not Available Not Available No t Available azithromy sarah 250 mg tablet 09/23 completed Not Available Not Available Not Available metoprolo l succinate ER 50 mg tablet,ex tended release 24 hr TAKE 1 TABLET BY MOUTH EVERY DAY active Not Available Not Available No t Available ciproflox acin 500 mg tablet Take 1 tablet every 12 hours by oral route for 2 days. active Not Available Not Available No t Available aspirin 81 mg tablet,de layed release Take 1 tablet every day by oral route. 2018 active Not Available Not Available Not Avai lable acyclovir 800 mg tablet active Not Available Not Available Not Available meloxicam 7.5 mg tablet TAKE 1 TABLET TWICE A DAY BY ORAL ROUTE NEEDED. 07/10 completed Not Available Not Available Not Available Kenalog 10 mg/mL suspensio n for injection office procedur e, administ ered by provider 07/10 completed [facility]: [phone] 11-21 Not Available Not Available Not Available benzonata te 100 mg capsule 09/18 completed Not Available Not Available Not Available lisinopri l 10 mg tablet TAKE 1 TABLET BY MOUTH EVERY DAY active Not Available Not Available No t Available hydrochlo rothiazid e 12.5 mg capsule TAKE 1 CAPSULE BY MOUTH EVERY DAY active Not Available Not Available No t Available metoprolo l succinate ER 25 mg tablet,ex tended release 24 hr TAKE ONE TABLET BY MOUTH EVERY DAY active Not Available Not Available No t Available ergocalci ferol (vitamin D2) 1,250 mcg (50,000 unit) capsule Take 1 capsule every week by oral route. 08/23 completed Not Available Not Available Not Available levofloxa sarah 500 mg tablet active Not Available Not Available No t Available albuterol sulfate HFA 90 mcg/actua tion aerosol inhaler INHALE 1 PUFF BY MOUTH EVERY 4 HOURS NEEDED 07/06 completed Not Available Not Available Not Available lisinopri l 2.5 mg tablet TAKE ONE TABLET BY MOUTH EVERY DAY active Not Available Not Available No t Available amoxicill in 875 mg-potass ium clavulana te 125 mg tablet TAKE 1 TABLET BY MOUTH EVERY 12 HOURS FOR 7 DAYS 02/23 completed Not Available Not Available Not Available ezetimibe 10 mg tablet TAKE 1 TABLET BY MOUTH EVERY DAY active Not Available Not Available No t Available rosuvasta tin 20 mg tablet Take 1 tablet(s ) every day by oral route. 10/[address] Randhawa Not Available Not Available Not Available rosuvasta tin 40 mg tablet TAKE 1 TABLET BY MOUTH EVERY DAY active Not Available Not Available No t Available Pepcid active Not Available Not Availa ble Not Available metoprolo l succinate 08/21 completed Not Available Not Available Not Available Boost 1 drink daily 09/21 completed Not Available Not Available Not Available Metamucil active Not Available Not Kristine ilable Not Available Nydia Low Dose Aspirin 02/06 completed Not Available Not Available Not Available Chantix 01/[address] Randhawa 11/20/19 22, f/u in 6 months Not Available Not Available Not Available hydrochlo rothiazid e 12.5 mg tablet Take 1 tablet every day by oral route for 30 days. active Not Available Not Available No t Available Bystolic 5 mg tablet 1od active Not Available Not Available Not Available GaviLyte- N 420 gram oral solution 09/18 completed Not Available Not Available Not Available ropivacai ne (PF) 5 mg/mL (0.5 %) injection solution office procedur e, administ ered by provider 07/10 completed [facility] [address]-90 11-02 Not Available Not Available Not Available Chantix Continuin g Month Box 1 mg tablet Take 1 tablet twice a day by oral route. 09/16 completed Not Available Not Available Not Available Chantix Starting Month Box 0.5 mg (11)-1 mg (42) tablets in dose pack 08/23 completed Not Available Not Available Not Available Boost Glucose Control active Not Available Not Available Not Available Spiriva Respimat 2.5 mcg/actua tion solution for inhalatio n Inhale 2 puffs every day by inhalati on route. 07/06 completed Not Available Not Available Not Available rosuvasta tin 40 mg sprinkle capsule Take every day by oral route. 07/[address] Randhawa started increase d dose also told to take chantix Not Available Not Available Not Available Afluria Qd 2019- (36 mos up)(PF)60 mcg (15 mcg x4)/0.5 mL IM syringe PHARMACY ADMINIST ERED 08/08 completed Not Available Not Available Not Available Vitals Date Recorded Body height Provider Name an d Address Organization Details Last Updated DateTime 08/07/2023 172.72 cm CHRISTOPHE Douglas [facility] [employer] [facility] 08/07/2023 09:44:31 Date Recorded Body height Body mass index (BMI) Body weight Body temperature Heart rate Oxygen saturation Oxygen saturation in Arterial blood by Pulse oximetry Systolic blood pressure Diastolic blood pressure Provider Name and Address Organization Details Last Updated DateTime 4 172.72 cm 28.5 kg/m2 82301.2 1 g 97.4 [degF] 75 /min 98 % 98 % 120 mm[Hg] 82 mm[Hg] Lorna Swan MA [facility] [employer] [facility] 4 08:59:42 Date Recorded Heart rate Respiratory rate Provider N aleksander and Address Organization Details Last Updated DateTime 09/29/2023 75 /min 15 /min Annmarie Britton MD [address], [place], [address] [employer] [facility] 09/29/2023 09:04:12 Date Recorded Body height Body mass index (BMI) Body weight Body temperature Heart rate Systolic blood pressure Diastolic blood pressure Provider Name and Address Organization Details Last Updated DateTime 172.72 cm 27.7 kg/m2 25391.8 1 g 97.5 [degF] 60 /min 110 mm[Hg] 80 mm[Hg] Saima Fortune [place] [facility] [employer] [facility] 4 09:42:09 Date Recorded Body height Body mass index (BMI) Body weight Heart rate Oxygen saturation Oxygen saturation in Arterial blood by Pulse oximetry Body temperature Systolic blood pressure Diastolic blood pressure Provider Name and Address Organization Details Last Updated DateTime 172.72 cm 27.4 kg/m2 94441.6 3 g 67 /min 97 % 97 % 97.8 [degF] 118 mm[Hg] 70 mm[Hg] Serge Lira CMA [facility] [employer] [facility] 4 10:15:43 Date Recorded Heart rate Respiratory rate Provider N aleksander and Address Organization Details Last Updated DateTime 02/24/2024 67 /min 14 /min Annmarie Britton MD [address], [place], [address], [facility] [employer] [facility] 02/24/2024 11:00:33 Date Recorded Body height Body mass index (BMI) Body weight Body temperature Heart rate Oxygen saturation Oxygen saturation in Arterial blood by Pulse oximetry Pain severity - 0-10 verbal numeric rating [Score] - Reported Systolic blood pressure Diastolic blood pressure Provider Name and Address Organization Details Last Updated DateTime 4 172.72 cm 28 kg/m2 73224 g 98.2 [degF] 72 /min 96 % 96 % 0 114 mm[Hg] 76 mm[Hg] Lorna Swan [place] [employer] [facility] 4 09:21:29 Social History Question Answer Notes LastModified by Organization Details LastModified Time Tobacco Smoking Status Current Every Day Smoker Not Available [facility] 10/02/2022 05:55:42 Do You Have An Advance Directive? No MIGRATION.0301 [id number] Information not available 10/02/2022 What Is Your Level Of Alcohol Consumption? Occasional MIGRATION.0301 [id number] Information not available 10/02/2022 What Is Your Level Of Caffeine Consumption? Heavy MIGRATION.0301 [id number] Information not available 10/02/2022 In The 14 Days Before Symptom Onset, Have You Had Close Contact With A Laboratory-conf irmed COVID-19 While That Case Was Ill? No MIGRATION.0301 [id number] Information not available 10/02/2022 In The 14 Days Before Symptom Onset, Have You Had Close Contact With A Person Who Is Under Investigation For COVID-19 While That Person Was Ill? No MIGRATION.0301 [id number] Information not available 10/02/2022 Are You Currently Employed? 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 REGULAR MIGRATION.0301 [id number] Information not available 10/02/2022 Which Illicit Or Recreational Drugs Have You Used? Marijauna MIGRATION.030 [id number] Information not available 10/02/2022 What Is The Highest Grade Or Level Of School You Have Completed Or The Highest Degree You Have Received? [id number] MIGRATION.030 [id number] Information not available 10/02/2022 Do You Have An Electrostatic Air Filter? No MIGRATION.0301 [id number] Information not available 10/02/2022 Have You Been Exposed To Chemicals Or Toxins? Yes Worked At [employer] For 42 Years. Information not available 09/29/2023 Have There Been Any Changes To Your Family Or Social Situation? No MIGRATION.0301 [id number] Information not available 10/02/2022 What Is The Fluoride Status Of Your Home? Unknown MIGRATION.0301 [id number] Information not available 10/02/2022 Are There Any Guns Present In Your Home? Yes MIGRATION.0301 [id number] Information not available 10/02/2022 Do You Have A Humidifier? Yes MIGRATION.0301 [id number] Information not available 10/02/2022 Do You Use Insect Repellent Routinely? No MIGRATION.0301 680676 Information not available 10/02/2022 Where Do You Live? SingleLevelHouse MIGRATION.0301 [id number] Information not available 10/02/2022 Do You Have A Medical Power Of Neon Sign Maker? No MIGRATION.0301 [id number] Information not available 10/02/2022 Do You Have Moisture Problems In Your Home? No MIGRATION.0301 617578 Information not available 10/02/2022 What Was The Date Of Your Most Recent Tobacco Screening? 07/06/2024 Information not available 07/06/2024 Have You Ever Been Counseled For Unhealthy Alcohol Use? No MIGRATION.0301 [id number] Information not available 10/02/2022 Do You Have Any Pets? Yes MIGRATION.0301 [id number] Information not available 10/02/2022 What Is Your Relationship Status? MIGRATION.0301 326187 Information not available 10/02/2022 Do You Use Your Seat Belt Or Car Seat Routinely? Yes MIGRATION.0301 780065 Information not available 10/02/2022 Do You Have Smoke And Carbon Monoxide Detectors In Your Home? Yes MIGRATION.0301 [id number] Information not available 10/02/2022 At What Age Did You Start Smoking Tobacco? 15 MIGRATION.0301 650851 Information not available 10/02/2022 Are You Passively Exposed To Smoke? Yes MIGRATION.0301 408915 Information not available 10/02/2022 Are There Any Smokers In Your House? Yes MIGRATION.0301 315226 Information not available 10/02/2022 How Much Tobacco Do You Smoke? 1 PPD 3/4 Ppd [email or web address] Information not available 01/09/2023 What Types Of Sporting Activities Do You Participate In? Golf MIGRATION.0301 [id number] Information not available 10/02/2022 Do You Feel Stressed (tense, Restless, Nervous, Or Anxious, Or Unable To Sleep At Night)? [id number] MIGRATION.0301 [id number] Information not available 10/02/2022 Do You Use Any Illicit Or Recreational Drugs? Yes Occasional MIGRATION.0301 630304 Information not available 10/02/2022 Do You Use Sunscreen Routinely? No MIGRATION.0301 [id number] Information not available 10/02/2022 How Many Years Have You Smoked Tobacco? 44 MIGRATION.030 337085 Information not available 10/02/2022 Have You Recently Traveled Abroad? No MIGRATION.030 067895 Information not available 10/02/2022 Have You Used IV Drugs? No MIGRATION.030 754056 Information not available 10/02/2022 Do You Have Any Dietary Restrictions? No MIGRATION.030 052550 Information not available 10/02/2022 Do You Or Have You Ever Used Any Other Forms Of Tobacco Or Nicotine? No MIGRATION.030 274361 Information not available 10/02/2022 Sex: Male Functional Status Question Answer Note LastModified by [employer] ion Details LastModified Time What is your exercise level? Moderate [id number] Information not available 10/02/2022 Mental Status None recorded. Family History Relationship Description Onset Age of this Age Resolved Age Notes LastModified by Organization Details LastModified Time Father Heart disease [id number].802 [id number] Not available 10/02/2022 05:57:48 Brother Malignant lymphoma [email or web address] Not available 09/05 08:49:43 Father Hypertensive disorder [email or web address] Not available 2022 14:44:03 Paternal Grandfather Congestive heart failure Not available 2023 09:18:14 Paternal Grandmother Diabetes mellitus Not available 2023 09:18:30 Maternal Grandmother Dementia Not available 09/29 09:18:37 Paternal Uncle Congestive heart failure Not available 2023 09:18:49 Medical History Condition Response NERVE DISEASE N BLINDNESS N RHEUMATIC FEVER N KIDNEY STONES N BLADDER PROBLEMS N MRSA N OTHER # 1 N POLIO N LUNG DISEASE/DISORDER Y HISTORY OF DRUG ABUSE N RADIATION / CHEMOTHERAPY N COPD N Other # 2 N BLOOD DISEASES N EAR OR HEARING PROBLEMS N MUMPS N SHINGLES N DEPRESSION (INCLUDING POST ) N BOWEL PROBLEMS N STROKE/TIA N ULCERS N BENIGN PROSTATIC HYPERPLASIA N MEASLES N HYPOTENSION N MYOCARDIAL INFARCTION N OBESITY N GERD/NAUSEA N ANEURYSM N URINARY/BLADDER/KIDNEY PROBLEMS N CORONARY ARTERY DISEASE (CAD) N ADDICTION CONCERNS N Impotence N ENDOMETRIOSIS N USE OF BLOOD THINNERS N SKIN PROBLEMS N GASTROINTESTINAL DISORDER N PERIPHERAL VASCULAR DISEASE Y MUSCLE,JOINT OR BONE PROBLEMS N GASTROINTESTINAL BLEEDING N BLOOD CLOTS N ASTHMA N CATARACTS N ERECTILE DYSFUNCTION N VARICOSITIES N GI PROBLEMS N Low Testosterone N INFERTILITY N AIDS/HIV N CHEMOTHERAPY / RADIATION N LIVER DISEASE N MALE HYPOGONADISM N HYPERTENSION Y Deficiency N TOURETTE'S N ANXIETY DISORDER Y BLOOD TRANSFUSION N ANEMIA/BLOOD DISORDER N CHRONIC EAR INFECTIONS N BRONCHITIS N TUBERCULOSIS N GLAUCOMA N FOOT PROBLEM N DIVERTICULITIS N SLEEP APNEA N CHICKENPOX N INFECTIOUS DISEASE N PROSTATE Y HEART ARRHYTHMIA N INSOMNIA N HIGH CHOLESTEROL / HYPERLIPIDEMIA Y EYE PROBLEMS N HYPERTHYROIDISM N EDEMA N CHRONIC PAIN SYNDROME N HYPOTHYROIDISM N CAROTID BLOCKAGE N CONSTIPATION N BACK / NECK PROBLEMS Y ATHEROSCLEROSIS N BREAST PROBLEMS N DIALYSIS N ECZEMA N OSTEOPOROSIS N ARTHRITIS Y APPENDICITIS N DIABETES, TYPE Y BAD TEETH N ENT N HEARTBURN / REFLUX N AUTISM SPECTRUM DISORDER (ASD) N HEPATITIS / LIVER DISEASE N GOUT N SLEEP DISORDER N ALZHEIMER'S DISEASE N Brain Problems N DEMENTIA N HERPES N SEIZURES/EPILEPSY N HEADACHES/MIGRAINES N VASCULAR DISEASE N PACEMAKER N Blood Disorder N DIZZINESS N HEART DISEASE/HEART PROBLEMS N KIDNEY DISEASE N MULTIPLE SCLEROSIS N CANCER: SPECIFY N CARDIAC ARRHYTHMIA N ATRIAL FIBRILLATION N Gall Stones N PULMONARY EMBOLISM N AUTOIMMUNE DISEASE N Immunizations Vaccine Type Date Status Note Provider Nam e and Address Organization Details Recorded Time Influenza, split virus, quadrivalent, PF 3 completed CHRISTOPHE Maki, [employer] [facility] [employer] 07/10/2023 09:20:52 Influenza, MDCK, quadrivalent, PF 2 completed CHRISTOPHE Maki, [employer] [facility] [employer] 05/21/2024 16:54:22 COVID-19, mRNA, LNP-S, PF, 30 mcg/0.3 mL dose 1 completed CHRISTOPHE Maki, [employer] [facility] [employer] 05/21/2024 16:54:22 COVID-19, mRNA, LNP-S, PF, 30 mcg/0.3 mL dose, macario-sucrose 2 completed Saima Fortune RMA null, [facility] 05/21/2024 16:54:22 Influenza, split virus, quadrivalent, PF 1 completed Saima Fortune RMA null, [facility] 05/21/2024 16:54:22 COVID-19, mRNA, LNP-S, PF, macario-sucrose, 30 mcg/0.3 mL 4 completed Saima Fortune RMA null, [facility] 05/21/2024 16:54:46 Influenza, MDCK, trivalent, PF 4 completed Saima Fortune RMA null, [facility] 05/21/2024 16:55:10 zoster recombinant 4 completed Saima Fortune RMA null, [facility] 08/02/2024 18:03:52 Influenza, split virus, trivalent, preservative 3 completed Saima Fortune RMA null, [facility] 05/21/2024 16:54:22 COVID-19, mRNA, LNP-S, bivalent, PF, 30 mcg/0.3 mL dose 2 completed Saima Fortune RMA null, [facility] 05/21/2024 16:54:22 Influenza, split virus, quadrivalent, PF 2 completed Not Available [facility] 04/02/2023 03:14:17 COVID-19, mRNA, LNP-S, PF, 30 mcg/0.3 mL dose 2 completed Saima Fortune RMA null, [facility] 05/21/2024 16:54:22 COVID-19, mRNA, LNP-S, PF, 30 mcg/0.3 mL dose 1 completed Not Available [facility] 04/02/2023 03:14:17 COVID-19, mRNA, LNP-S, PF, 30 mcg/0.3 mL dose 1 completed Saima Fortune RMA null, [place] [facility] 05/21/2024 16:54:22 COVID-19, mRNA, LNP-S, PF, 30 mcg/0.3 mL dose 1 completed Saima Fortune RMA null, [place] [facility] 05/21/2024 16:54:22 Influenza, split virus, quadrivalent, preservative 0 completed Not Available [facility] 04/02/2023 03:14:17 Influenza, split virus, quadrivalent, preservative 0 completed Not Available [facility] 04/02/2023 03:14:17 Influenza, split virus, quadrivalent, preservative 9 completed Not Available [facility] 04/02/2023 03:14:17 Influenza, split virus, quadrivalent, preservative 1 completed Not Available [facility] 04/02/2023 03:14:17 Tdap 8 completed Not Available [facility] 04/02/2023 03:14:17 Influenza, split virus, quadrivalent, PF 7 completed Not Available [facility] 04/02/2023 03:14:17 Influenza, split virus, quadrivalent, preservative 6 completed Not Available [facility] 04/02/2023 03:14:17 Influenza, split virus, quadrivalent, PF 8 completed Not Available [facility] 04/02/2023 03:14:17 Influenza, high-dose, trivalent, PF 4 completed Not Available [facility] 04/02/2023 03:14:17 Influenza, split virus, quadrivalent, PF 5 completed Not Available [facility] 04/02/2023 03:14:17 Past Encounters Encounter ID Performer Location Encounter Start Date Encounter Closed Date Diagnosis/Indication Diagnosis SNOMED-CT Code Diagnosis ICD10 Code Diagnosis Note [id number] Ada molina MD [facility] [place] [address] [facility], [facility] 15 [place] [address] 02/06/2021 00:00:00 02/06/2021 10:49:58 [id number] [facility] Reggie Amador [address] [place] [address] 04/02/2021 00:00:00 04/02/2021 11:08:54 [id number] MD TERESA RigginsS_[facility] Internal Med [facility] [address] [address] 07/10/2021 00:00:00 07/10/2021 10:20:28 [id number] [facility] Pulmonolo gy Reggie Amador [address] [place] [address] 08/23/2021 00:00:00 08/23/2021 15:08:41 [id number] MD TERESA RigginsS[facility] Internal Med [facility] [address] [facility] [address] [address] 01/08/2022 00:00:00 01/31/2022 17:29:02 [id number] Ada molina MD [facility] 15 [address] [facility] [address] [address] 05/14/2022 00:00:00 05/14/2022 12:28:58 [id number] Ada molina MD [facility] [address] [facility] [address] [address] 07/11/2022 00:00:00 07/11/2022 09:43:50 [id number] MD TERESA RigginsS[facility] Internal Med [facility] [address] [facility] [address] [address] 01/09/2023 09:10:11 01/09/2023 09:42:58 Screening - NAD [id number] Z13.9 C-scope: Dr Lewis 06/20/17, next in 10 years UTD on the flu shotGet Tdap 10/21/17UT D PCV #23 3 years ago when he did have the pneumoniaU TD on COVID 19 vaccine RTC in 6 monthsrepe at the labsER if any life threating illnesshe did verbalize their understand ing of the above Peripheral vascular disease [id number] I73.9 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 - Dr Galeas in [facility], and is a rheumatolo gist 7 years ago and is doing well now CT ca score: 04/04/2021 [facility] Dr Randhawa 05/09/2021 : to get [facility] states that this will be done this month ECHO 06/13/2021 : Dr Bermudez s test 06/13/2021 : Neg Dr Randhawa [facility] Dr Randhawa Essential hypertension [id number] I10 On ASAOn HCTZ 12.5mg dailyOn lisinopril 10mg dailyOn toprol ER 50mg daily, increased by Dr Randhawa 11/19/2021 , f/u in 6 monthsDoes [facility] Cigarette smoker 7765232 7 F17.210 Get a LDCT1 PPD 35 yearsAdvis ed to quit smoking OV 10/21/17:L DCT 10/01/17:D id get the PFTs, and nicolasa refer to Malena Gautam NP OV 02/24/18:D oing well at this timeDid see Malena Gautam NP OV 08/25/18:S ees Malena Gautam NP OV 02/23/19:L DCT 09/16/18Se es pulmonary OV 07/22/19:> 1PPDAdvise d to quit smokingGet LDCT 09/2019Nee ds to see Maelna Gautam NP OV 01/25/2020 ;Advised to quit smoking!!, explained the risks, he states that he does not want to 'gain weight after quitting'D id see Malena 08/23/2019 LDCT 09/16/2019 , noted to have stable COPD next in one yearLetter for medical leave written today for him OV 08/08/2020 :Get LDCTF/u with pulmonaryA dvised to quit smoking OV 07/10/2021 :Again advised to quit smoking!He does not want any LDCT as he states that his insurance does not pay for this and the last LDCT cost him $500, in any case, he states that he is very active, and does not have any symptomsDi d give referral back to pulmonary OV 01/08/2022 :Malena Temple [employer]DE[employer]FORMER 08/23/2021 , f/u one year OV 07/11/2022 :F/u with Malena Gloria [employer] PERFORMER OV 01/09/2023 :Should keep his apt with Malena Temple [employer]FORMER Generalize d anxiety disorder 14881591 F41.1 Does wellNot suicidal or homicidalD eclines any meds or psychiatry referrals Erythrocytosis 523621359 D75.1 OV 02/24/18:G et a referral to hematology OV 08/25/18:S ees Dr Schmidt OV 02/23/19:S ee hematology , the H/H is normal but his WBC is elevated, needs an apt with hematology , he declines any new aptsHe is agreeable to get a CBC and if WBC is still elevated, will get another apt with Dr Schmidt OV 07/22/19:C BC WNL, no apts with Dr Schmidt OV 01/25/2020 :CBC WNL OV 08/08/2020: Get a CBC Addendum: 08/08/2020 :Needs to see hematology , case sent [place] OV 02/06/2021 :Needs to see hematology , last OV 11/08/2020 , need phlebotomy if HCT above 50 as per hematology OV 07/10/2021 :: Dr Garcia f/u in 6 months, phlebotomy if HCT above 50Referred today OV 01/08/2022 :CBC: WNL 01/01/2022 Dr Garcia 08/21/2021 , next in 6 months OV 07/11/2022 :Dr Garcia 03/07/2022 , next in 6 months OV 01/09/2023 :CBC WNL 01/03/2023 Hyperlipidemia 32421878 E78.5 On ASAOn rosuvastat in 40mg dailyOn zetia 10mg dailyGet labs Type 2 nate betes mellitus without complication 182240102 E11.9 On metformin 500mg every other dayGet labs Dr Santiago mccormick 03/07/2021 Dr Griffith 04/02/2021 Blood in urine [id number] R31.9 S/p CT abd/pelvis ordered by urology 09/16/2019 Dr Wakefield 09/22/2020 Screening for malignant neoplasm of prostate 324106533 Z12.5 [id number] Ada molina MD [facility] Internal Med Heather garcia [address] [facility] [place] [address] 03/05/2023 13:55:34 03/05/2023 14:18:28 Pain of right knee joint 3311390536 36924 M25.561 Get on the meloxicamR ICEER if worse, notify if not better, may need to see orthoHe is agreeable to this plan of care [id number] Joshua Carr DPM [facility] [place] [address] [facility] [address] [place] [address] 03/20/2023 14:36:52 03/20/2023 17:17:48 Peripheral arterial occlusive disease 075302638 I73.9 obtain non invasive vascular testing Cigarette smoker 3091030 7 F17.210 recommend discontinu e smokingAnd educated on signs and symptoms of smoking Diabetes mellitus 672425 09 E11.9 continue with PCP recommenda tionsConti nue supportive shoe gearFollow -up in 6 months Onychomyco sis of toenails 998538649 B35.1 left 3rd toenailwel l perform total nail avulsion of the affected toenails once arterial testing is performed and adequate [id number] Delta Juarez MD Carlos_[facility] Ortho [address] [address] 03/27/2023 09:11:01 03/27/2023 14:03:10 Pain of right knee joint 7543496807 78249 M25.172 [id number] Delta Juarez MD Carlos_[facility] Ortho [address] [address] 05/08/2023 11:58:53 05/08/2023 14:08:35 Pain of right knee joint 6895893410 47308 M25.255 [id number] Ada molina MD [facility] 15 [address] [facility] [address] [place] [address] 07/10/2023 09:11:26 07/10/2023 09:50:43 Pain of right knee joint 3031500026 64616 M25.561 Get on the meloxicamR ICEER if worse, notify if not better, may need to see orthoHe is agreeable to this plan of care Dr Juarez 05/08/2023 , next 08/07/2022 Screening - NAD 36856653 3 Z13.9 C-scope: Dr Lewis 06/20/17, next in 10 years UTD on the flu shotGet Tdap 10/21/17UT D PCV #23 3 years ago when he did have the pneumoniaU TD on COVID 19 vaccine RTC in 6 [facility]repe at [facility] if any life threating illnesshe did verbalize their understand ing of the above Peripheral vascular disease 060478163 I73.9 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 - Dr Galeas in [facility], and is a rheumatolo gist 7 years ago and is doing well now CT ca score: 04/04/2021 [facility] Dr Randhawa 05/09/2021 : to get [facility] states that this will be done this month ECHO 06/13/2021 : Dr Bermudez s test 06/13/2021 : Neg Dr Randhawa [facility] Dr Randhawa Essential hypertension 74391377 I10 On ASAOn HCTZ 12.5mg dailyOn lisinopril 10mg dailyOn toprol ER 50mg daily, increased by Dr Randhawa 11/19/2021 , f/u in 6 monthsDoes [facility] Cigarette smoker 2359893 7 F17.210 Get a LDCT1 PPD 35 yearsAdvis ed to quit smoking OV 10/21/17:L DCT 10/01/17:D id get the PFTs, and nicolasa refer to Malena Gautam [employer]DE[employer] PERFORMER OV 02/24/18:D oing well at this timeDid see Malena Gautam [employer]DE[employer] PERFORMER OV 08/25/18:S ees Malena Gautam [employer] PERFORMER OV 02/23/19:L DCT 09/16/18Se es pulmonary OV 07/22/19:> 1PPDAdvise d to quit smokingGet LDCT 09/2019Nee ds to see Malena Gautam [employer] PERFORMER OV 01/25/2020 ;Advised to quit smoking!!, explained the risks, he states that he does not want to 'gain weight after quitting'D id see Malena 08/23/2019 LDCT 09/16/2019 , noted to have stable COPD next in one yearLetter for medical leave written today for him OV 08/08/2020 :Get LDCTF/u with pulmonaryA dvised to quit smoking OV 07/10/2021 :Again advised to quit smoking!He does not want any LDCT as he states that his insurance does not pay for this and the last LDCT cost him $500, in any case, he states that he is very active, and does not have any symptomsDi d give referral back to pulmonary OV 01/08/2022 :Malena Temple [employer] PERFORMER 08/23/2021 , f/u one year OV 07/11/2022 :F/u with Malena Gloria [employer]DEO PERFORMER OV 01/09/2023 :Should keep his apt with Malena Temple [employer]DEO PERFORMER Needs to see Dr Reba ross Generalize d anxiety disorder 27796262 F41.1 Does wellNot suicidal or homicidalD eclines any meds or psychiatry referrals Erythrocytosis 474432995 D75.1 OV 02/24/18:G et a referral to hematology OV 08/25/18:S ees Dr Schmidt OV 02/23/19:S ee hematology , the H/H is normal but his WBC is elevated, needs an apt with hematology , he declines any new aptsHe is agreeable to get a CBC and if WBC is still elevated, will get another apt with Dr Schmidt OV 07/22/19:C BC WNL, no apts with Dr Schmidt OV 01/25/2020 :CBC WNL OV 08/08/2020: Get a CBC Addendum: 08/08/2020 :Needs to see hematology , [place] OV 02/06/2021 :Needs to see hematology , last OV 11/08/2020 , need phlebotomy if HCT above 50 as per hematology OV 07/10/2021 :: Dr Garcia f/u in 6 months, phlebotomy if HCT above 50Referred today OV 01/08/2022 :CBC: WNL 01/01/2022 Dr Garcia 08/21/2021 , next in 6 months OV 07/11/2022 :Dr Garcia 03/07/2022 , next in 6 months OV 01/09/2023 :CBC WNL 01/03/2023 Hyperlipidemia 12024927 E78.5 On ASAOn rosuvastat in 40mg dailyOn zetia 10mg dailyGet labs Type 2 nate betes mellitus without complication 934248202 E11.9 On metformin 500mg every other dayGet labs Dr Henderson eye 03/07/2021 Dr Griffith 04/02/2021 Blood in urine 31687383 R31.9 S/p CT abd/pelvis ordered by urology 09/16/2019 Dr Wakefield 09/22/2020 [id number] Delta Juarez [place] [address] 08/07/2023 09:39:24 08/25/2023 14:36:00 Osteoarthritis of right knee joint 1887965740 61130 M17.11 [id number] Annmarie Britton MD [facility] Pulmonolo gy [place] [address] 09/29/2023 08:46:18 10/02/2023 10:15:01 Dyspnea on exertion 35022245 R06.09 R05.9 T78.40XA D89.9 Smoker 91092111 F17.218 F17.219 Z87.621 [id number] Ada molina MD [facility] [address] [address] 01/06/2024 09:24:32 01/06/2024 10:24:06 Screening - NAD 995753457 Z13.9 C-scope: Dr Lewis 06/20/17, next in 10 years UTD on the flu shotGet Tdap 10/21/17UT D PCV #23 3 years ago when he did have the pneumoniaU TD on COVID 19 vaccineCan do shingrix and RSV vaccine RTC in 6 monthsrepe at the labsER if any life threatenin g illnesshe did verbalize their understand ing of the above Pain of ri ght knee joint 8648768358 51867 M25.561 Get on the meloxicamR ICEER if worse, notify if not better, may need to see orthoHe is agreeable to this plan of care Dr Juarez 05/08/2023 Today 01/06/2024 , states that he wears a soft sleeve and this helps, he is very reluctant to do any surgery Peripheral vascular disease 298645191 I73.9 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 - Dr Galeas in [facility], and is a rheumatolo gist 7 years ago and is doing well now CT ca score: 04/04/2021 [facility] Dr Randhawa 05/09/2021 : to get [facility] states that this will be done this month ECHO 06/13/2021 : Dr Bermudez s test 06/13/2021 : Neg Dr Randhawa [facility] Dr Randhawa Essential hypertension 21252865 I10 On ASAOn HCTZ 12.5mg dailyOn lisinopril 10mg dailyOn toprol ER 50mg daily, increased by Dr Randhawa 11/19/2021 , f/u in 6 monthsDoes [facility] Cigarette smoker 1071249 7 F17.210 Get a LDCT1 PPD 35 yearsAdvis ed to quit smoking OV 10/21/17:L DCT 10/01/17:D id get the PFTs, and nicolasa refer to Malena Gautam NP OV 02/24/18:D oing well at this timeDid see Malena Gautam NP OV 08/25/18:S ees Malena Gautam NP OV 02/23/19:L DCT 09/16/18Se es pulmonary OV 07/22/19:> 1PPDAdvise d to quit smokingGet LDCT 09/2019Nee ds to see Malena Gautam NP OV 01/25/2020 ;Advised to quit smoking!!, explained the risks, he states that he does not want to 'gain weight after quitting'D id see Malena 08/23/2019 LDCT 09/16/2019 , noted to have stable COPD next in one yearLetter for medical leave written today for him OV 08/08/2020 :Get LDCTF/u with pulmonaryA dvised to quit smoking OV 07/10/2021 :Again advised to quit smoking!He does not want any LDCT as he states that his insurance does not pay for this and the last LDCT cost him $500, in any case, he states that he is very active, and does not have any symptomsDi d give referral back to pulmonary OV 01/08/2022 :Malena Temple [employer]DE[employer] PERFORMER 08/23/2021 , f/u one year OV 07/11/2022 :F/u with Malena Gloria [employer]DEO PERFORMER OV 01/09/2023 :Should keep his apt with Malena Temple [employer]DEO PERFORMER OV 01/06/2024 Dr Britton 09/29/2023 Generalize d anxiety disorder 19032824 F41.1 Does wellNot suicidal or homicidalD eclines any meds or psychiatry referrals Erythrocytosis 403884060 D75.1 OV 02/24/18:G et a referral to hematology OV 08/25/18:S ees Dr Schmidt OV 02/23/19:S ee hematology , the H/H is normal but his WBC is elevated, needs an apt with hematology , he declines any new aptsHe is agreeable to get a CBC and if WBC is still elevated, will get another apt with Dr Schmidt OV 07/22/19:C BC WNL, no apts with Dr Schmidt OV 01/25/2020 :CBC WNL OV 08/08/2020: Get a CBC Addendum: 08/08/2020 :Needs to see hematology , [place] 02/06/2021 :Needs to see hematology , last OV 11/08/2020 , need phlebotomy if HCT above 50 as per hematology OV 07/10/2021 :: Dr Garcia f/u in 6 months, phlebotomy if HCT above 50Referred today OV 01/08/2022 :CBC: WNL 01/01/2022 Dr Garcia 08/21/2021 , next in 6 months OV 07/11/2022 :Dr Garcia 03/07/2022 , next in 6 months OV 01/09/2023 :CBC WNL 01/03/2023 OV 01/06/2024 : See Dr Garcia Hyperlipidemia 75254485 E78.5 On ASAOn rosuvastat in 40mg dailyOn zetia 10mg dailyGet labs Type 2 nate betes mellitus without complication 100238645 E11.9 On metformin 500mg every other dayGet labs Dr Henderson eye 03/07/2021 Dr Griffith 04/02/2021 Blood in urine 33649837 R31.9 S/p CT abd/pelvis ordered by urology 09/16/2019 Dr Wakefield 09/22/2020 OV 01/06/2024 : Does well now Oral cyst 3208463630 033200 K09.9 Soft slightly tender cyst noted on the L lower buccal mucosa, states that he ate a lot of peaches and this occurred, get on augmentin, if not better will need to see oral surgery [id number] Annmarie Britton MD [facility] [address] 02/24/2024 09:56:57 02/26/2024 09:13:00 Smoker 13770618 F17.218 F17.219 Z87.891 Mild chron ic obstructive pulmonary disease 112950110 J44.9 [id number] Ada molina MD [facility] [address] 07/06/2024 09:08:02 07/06/2024 10:05:10 Screening - NAD 759784524 Z13.9 C-scope: Dr Lewis 06/20/17, next in 10 years UTD on the flu shotGet Tdap 10/21/17UT D PCV #23 3 years ago when he did have the pneumoniaU TD on COVID 19 vaccineCan do shingrix and RSV vaccine RTC in 6 monthsrepe at the [facility] if any life threatenin g illnesshe did verbalize their understand ing of the above Pain of ri ght knee joint 8057883199 56007 M25.561 Get on the meloxicamR ICEER if worse, notify if not better, may need to see orthoHe is agreeable to this plan of care Dr Juarez 05/08/2023 Today 01/06/2024 , states that he wears a soft sleeve and this helps, he is very reluctant to do any surgery Peripheral vascular disease 712097318 I73.9 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 - Dr Galeas in [facility], and is a rheumatolo gist 7 years ago and is doing well now CT ca score: 04/04/[address] Randhawa 05/09/2021 : to get [facility] states that this will be done this month ECHO 06/13/2021 : Dr Bermudez s test 06/13/2021 : Neg Dr Randhawa [facility] Dr Randhawa Essential hypertension 50387452 I10 On ASAOn HCTZ 12.5mg dailyOn lisinopril 10mg dailyOn toprol ER 50mg daily, increased by Dr Randhawa 11/19/2021 Does [facility] Cigarette smoker 6823165 7 F17.210 Get a LDCT1 PPD 35 yearsAdvis ed to quit smoking OV 10/21/17:L DCT 10/01/17:D id get the PFTs, and nicolasa refer to Malena Gautam NP OV 02/24/18:D oing thuy at this timeDid see Malena Gautam NP OV 08/25/18:S ees Malena Gautam NP OV 02/23/19:L DCT 09/16/18Se es pulmonary OV 07/22/19:> 1PPDAdvise d to quit smokingGet LDCT 09/2019Nee ds to see Malena Gautam NP OV 01/25/2020 ;Advised to quit smoking!!, explained the risks, he states that he does not want to 'gain weight after quitting'D id see Malena 08/23/2019 LDCT 09/16/2019 , noted to have stable COPD next in one yearLetter for medical leave written today for him OV 08/08/2020 :Get LDCTF/u with pulmonaryA dvised to quit smoking OV 07/10/2021 :Again advised to quit smoking!He does not want any LDCT as he states that his insurance does not pay for this and the last LDCT cost him $500, in any case, he states that he is very active, and does not have any symptomsDi d give referral back to pulmonary OV 01/08/2022 :Malena Temple NP 08/23/2021 , f/u one year OV 07/11/2022 :F/u with Malena Gloria NP OV 01/09/2023 :Should keep his apt with Malena Temple NP OV 01/06/2024 Dr Britton 09/29/2023 OV 07/06/2024 :Dr Britton 02/24/2024 , next 02/23/2025 PFT 02/24/2024 Generalize d anxiety disorder 49143803 F41.1 Does wellNot suicidal or homicidalD eclines any meds or psychiatry referrals Erythrocytosis 462056562 D75.1 OV 02/24/18:G et a referral to hematology OV 08/25/18:S ees Dr Schmidt OV 02/23/19:S ee hematology , the H/H is normal but his WBC is elevated, needs an apt with hematology , he declines any new aptsHe is agreeable to get a CBC and if WBC is still elevated, will get another apt with Dr Schmidt OV 07/22/19:C BC WNL, no apts with Dr Schmidt OV 01/25/2020 :CBC WNL OV 08/08/2020: Get a CBC Addendum: 08/08/2020 :Needs to see hematology , [place] 02/06/2021 :Needs to see hematology , last OV 11/08/2020 , need phlebotomy if HCT above 50 as per hematology OV 07/10/2021 :: Dr Garcia f/u in 6 months, phlebotomy if HCT above 50Referred today OV 01/08/2022 :CBC: WNL 01/01/2022 Dr Garcia 08/21/2021 , next in 6 months OV 07/11/2022 :Dr Garcia 03/07/2022 , next in 6 months OV 01/09/2023 :CBC WNL 01/03/2023 OV 01/06/2024 : See Dr Garcia OV 07/06/2024 : See hematology , referred Hyperlipidemia 22541529 E78.5 On ASAOn rosuvastat in 40mg dailyOn zetia 10mg dailyGet labs Type 2 nate betes mellitus without complication 922492282 E11.9 On metformin 500mg every other dayGet labs Dr Henderson eye 03/07/2021 Dr rGiffith 04/02/2021 Blood in urine 69237706 R31.9 S/p CT abd/pelvis ordered by urology 09/16/2019 Dr Wakefield 09/22/2020 OV 01/06/2024 : Does well now Oral cyst 8307974449 094581 K09.9 Soft slightly tender cyst noted on the L lower buccal mucosa, states that he ate a lot of peaches and this occurred, get on augmentin, if not better will need to see oral surgery Health Concerns Section Related Observation LastModified by Organization Detai ls LastModified Time None Recorded Concern Status LastModified by Organization Details LastModified Time None Recorded Advance Directives Directive N: Payers Encounter Date Sequence Insurance Name Policy Number Policy [place] Covered Member ID [place] Member ID Guarantor Name 08/07/2023 1 [employer] - CHOICE (POS II) [id number] Ramakrishna Hernandez Roxann [id number] Ramakrishna Hackett 09/29/2023 1 [employer] - CHOICE (POS II) [id number] Ramakrishna P Roxann [id number] 1 Ramakrishna P Roxann 01/06/2024 1 [employer] - CHOICE (POS II) [id number] Ramakrishna Hernandez Roxann [id number] 1 Ramakrishna Hernandez Roxann 02/24/2024 1 [employer] - CHOICE (POS II) [id number] Ramakrishna Hernandez Roxann [id number] 1 Ramakrishna Hernandez Roxann 07/06/2024 1 [employer] - CHOICE (POS II) [id number] Ramakrishna Hernandez Roxann [id number] 1 Ramakrishna Hackett Notes Date Note Type Note Provider Name and Address Organization Details Recorded Time 08/07/2023 text/html patient returns. He is here for follow-up of his right Knee. he was last seen May 08. He has mild patellofemoral arthritis the right and presented in April with 8/10 pain with patellofemoral grind a mild effusion. He developed severe nausea after 2 days of taking the low-dose meloxicam 7.5 mg. He had a cortisone shot in the right knee in April which helped dramatically. We did prescribe physical therapy but he never went because his symptoms were completely alleviated with a cortisone shot. He did have a flare-up of symptoms in late May. He went on a vacation to the [place] and was going up and down the shore which was a lot of climbing and descending a hill and the knee flared up and swelled again. He has been doing a lot of walking for exercise. He is doing better now again. Delta Juarez MD [address] [place] [address], [facility] [address], [place], [address], [facility] [employer] 08/24/2023 19:28:27 09/29/2023 text/html Primary care/Ref erring provider: Ada Apple MD Patient is here to go over shortness of breath evaluation/management. Initial development of shortness of breath: 2018Duration of shortness of breath: 6 yearsCondition of shortness of breath: stableTiming of shortness of breath: noneFrequency: once a weekLimits activities: yesAggravating factors: jogging, climbing stepsAlleviating factors: rest Modified [employer] [place] (mMRC) Dyspnea Scale - Grade 1Grade 0 I only get breathless with strenuous exercise .Grade 1 I get short of breath when hurrying on the level or walking up a slight hill .Grade 2 I walk slower than people of the same age on the level because of breathlessness or have to stop for breath when walking at my own pace on the level .Grade 3 I stop for breath after walking about 100 yards or after a few minutes on the level .Grade 4 I am too breathless to leave the house or I am breathless when dressing . Treatment history: Albuterol HFA as needed since 2018, never used it Other symptoms:Drooling: noDysarthria: noNeck pain: noOdynophagia: noDysphagia: noWeak mastication: noFacial weakness: noNasal speech: noProtruding tongue: noProductive cough: noWheezing: noChest tightness: yesOrthopnea: noFrequent throat clearing or swallowing: noPalpitations: noHeartburn: noEdema: no Environmental exposures:Nicotine smoke: 1 ppd 1977-present = 46 pack yearsPaint: noDye: noDust mites: yesMold: noDamp basement: noWood burning fireplace: yesAnimal dander: dogCockroaches: noPollen: yesArsenic: noAsbestos: yesBeryllium: noCadmium: noChromium: noCoal smoke: noDiesel fumes: noNickel: noSilica: noSoot: no EPWORTH SLEEPINESS SCALE (ESS) CHANCE OF DOZING SCORE0 = would never doze1 = slight chance of dozing2 = moderate chance of dozing3 = high chance of dozing SITUATION AND CHANCE OF DOZINGSitting and reading - 0Watching television - 0Sitting inactive in a public place (e.g. a theater or meeting) - 0As a passenger in a car for an hour without a break - 0Lying down to rest in the afternoon when circumstances permit - 0Sitting and talking to someone - 0Sitting quietly after lunch without alcohol - 0In a car, while stopped for a few minutes in the traffic - 0TOTAL SCORE 0Subjectively, patient has no chance of dozing. Annmarie Britton MD [address], [place], [address], [facility] [employer] 09/29/2023 09:38:51 01/06/2024 text/html 09/23/17Here to establish carePast Hx:HTNReviewed social family and surgical historyHere with his , recently admitted for sepsis and now is doing wellOv 10/21/17:Here for his routine apt, he states that he did not do the labs, but he has noted some anxietyDenies any depression episodes, no hallucinations or delusions and is not suicidal or homicidalOV 11/18/17:Here for his routine aptHe states that he is doing well at this timeHe did do the labs from 11/13/17 and is here to review theseOV 02/24/18:Here for his routine aptHe did do the labs 02/20/18OV 08/25/18:Here for his routine aptHe states that he is doing well at this timeOV 10/14/18:ACV:Here with R leg painNoted since 3-4 daysC/o sharp pain,No acute or remote traumaHe does stand just on the R leg running a bray has been doing for 30 years, feels that this could be a PADOV 02/23/19:Here for his routine aptHe did do the labs on 02/16/19He has also seen the urologist Dr Dorantes for his BPH, and he was told he had blood in the urine, he then submitted another sample for a UA and has not heard back from the urologistOV 07/22/19;Here for his routine aptHe feels wellHe did do his labs on 07/21/19 and is here to review theseOV 01/25/2020:Here for his routine aptHe is doing very wellHe did do the labsHe states that he would like a letter to say he cannot work in [place] places d/t his COPDHe works in a steel millOV 02/06/2021:Here for his routien aptHe did do the labsHe feels 'great' states that he is very active, walks more than 10K steps a dayHe is still smoking, needs to see pulmonary and also needs to see Dr Randhawa and Dr Burrell 07/10/2021:Here for his routine aptHe feels wellHe did do the labsContinues to be very active since he has retired OV 01/08/2022:Here for his routine aptHe is doing very wellHe did do the labs on 2OV 05/14/2022:Here for ACVC/o R ear fullness, feels that he has wax and his hearing is muffled, denies any d/c from the ears, no dizzyness, no other URI symptoms OV 01/09/2023:Here for his f/u apt, he is doing very well, 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 walks and exercises also, he did do the labs on 01/03/2023 OV 03/05/2023: Here for his ACV, c/o R knee pain and swelling since playing golf, no pain with walking, no N/T or acute trauma OV 07/10/2023: Here for his f/u apt, he is doing well at this time, he did do the labs OV 01/06/2024: Here for his f/u apt, he is doing well today, he did do the labs, feels that his R knee pain is intermittent but he feels that wearing a knee sleeve this helps, he is very active Ada Apple MD [address], [facility] [address], [place], [address], [facility] [employer] 01/06/2024 17:18:48 02/24/2024 text/html Primary care/Ref erring provider: Ada Apple MD Patient is here to go over his CXR, lab data and PFT as part of his shortness of breath evaluation/management. Initial development of shortness of breath: 2018Duration of shortness of breath: 6 yearsCondition of shortness of breath: stableTiming of shortness of breath: noneFrequency: once a weekLimits activities: yesAggravating factors: jogging, climbing stepsAlleviating factors: rest Modified [employer] [place] (mMRC) Dyspnea Scale - Grade 1Grade 0 I only get breathless with strenuous exercise .Grade 1 I get short of breath when hurrying on the level or walking up a slight hill .Grade 2 I walk slower than people of the same age on the level because of breathlessness or have to stop for breath when walking at my own pace on the level .Grade 3 I stop for breath after walking about 100 yards or after a few minutes on the level .Grade 4 I am too breathless to leave the house or I am breathless when dressing . Treatment history: Albuterol HFA as needed since 2018, never used it Other symptoms:Drooling: noDysarthria: noNeck pain: noOdynophagia: noDysphagia: noWeak mastication: noFacial weakness: noNasal speech: noProtruding tongue: noProductive cough: noWheezing: noChest tightness: yesOrthopnea: noFrequent throat clearing or swallowing: noPalpitations: noHeartburn: noEdema: no Environmental exposures:Nicotine smoke: 1 ppd 1977-present = 46 pack yearsPaint: noDye: noDust mites: yesMold: noDamp basement: noWood burning fireplace: yesAnimal dander: dogCockroaches: noPollen: yesArsenic: noAsbestos: yesBeryllium: noCadmium: noChromium: noCoal smoke: noDiesel fumes: noNickel: noSilica: noSoot: no EPWORTH SLEEPINESS SCALE (ESS) CHANCE OF DOZING SCORE0 = would never doze1 = slight chance of dozing2 = moderate chance of dozing3 = high chance of dozing SITUATION AND CHANCE OF DOZINGSitting and reading - 0Watching television - 1Sitting inactive in a public place (e.g. a theater or meeting) - 0As a passenger in a car for an hour without a break - 0Lying down to rest in the afternoon when circumstances permit - 1Sitting and talking to someone - 0Sitting quietly after lunch without alcohol - 0In a car, while stopped for a few minutes in the traffic - 0TOTAL SCORE 2Subjectively, patient has a slight chance of dozing. Annmarie Britton MD [address], [place], [address], [place] [facility] 02/24/2024 11:01:19 07/06/2024 text/html 09/23/17Here to establish carePast Hx:HTNReviewed social family and surgical historyHere with his , recently admitted for sepsis and now is doing wellOv 10/21/17:Here for his routine apt, he states that he did not do the labs, but he has noted some anxietyDenies any depression episodes, no hallucinations or delusions and is not suicidal or homicidalOV 11/18/17:Here for his routine aptHe states that he is doing well at this timeHe did do the labs from 11/13/17 and is here to review theseOV 02/24/18:Here for his routine aptHe did do the labs 02/20/18OV 08/25/18:Here for his routine aptHe states that he is doing well at this timeOV 10/14/18:ACV:Here with R leg painNoted since 3-4 daysC/o sharp pain,No acute or remote traumaHe does stand just on the R leg running a bray has been doing for 30 years, feels that this could be a PADOV 02/23/19:Here for his routine aptHe did do the labs on 02/16/19He has also seen the urologist Dr Dorantes for his BPH, and he was told he had blood in the urine, he then submitted another sample for a UA and has not heard back from the urologistOV 07/22/19;Here for his routine aptHe feels wellHe did do his labs on 07/21/19 and is here to review theseOV 01/25/2020:Here for his routine aptHe is doing very wellHe did do the labsHe states that he would like a letter to say he cannot work in [employer] places d/t his COPDHe 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 in a steel millOV 02/06/2021:Here for his routien aptHe did do the labsHe feels 'great' states that he is very active, walks more than 10K steps a dayHe is still smoking, needs to see pulmonary and also needs to see Dr Randhawa and Dr Burrell 07/10/2021:Here for his routine aptHe feels wellHe did do the labsContinues to be very active since he has retired OV 01/08/2022:Here for his routine aptHe is doing very wellHe did do the labs on 2OV 05/14/2022:Here for ACVC/o R ear fullness, feels that he has wax and his hearing is muffled, denies any d/c from the ears, no dizzyness, no other URI symptoms OV 01/09/2023:Here for his f/u apt, he is doing very well, 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 walks and exercises also, he did do the labs on 01/03/2023 OV 03/05/2023: Here for his ACV, c/o R knee pain and swelling since playing golf, no pain with walking, no N/T or acute trauma OV 07/10/2023: Here for his f/u apt, he is doing well at this time, he did do the labs OV 01/06/2024: Here for his f/u apt, he is doing well today, he did do the labs, feels that his R knee pain is intermittent but he feels that wearing a knee sleeve this helps, he is very active OV 07/06/2024: Here for his f/u apt, he is doing well and he did do the labs on 06/30/2024 Ada Apple MD [address], [facility] [address], [place], [address], [place] [facility] 07/07/2024 14:09:37
--- OUTSIDE RECORDS SUMMARY | 2024-12-10 08:07 | XMS_ITS | CONTINUITY OF CARE DOCUMENT ---
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 Name Role Phone Karson Randhawa MD Unavailable [phone] JAIR KWON MD Unavailable JAIR KWON MD Unavailable [phone] PROBLEMS Condition Status Date Provider Notes CAD active Karson Randhawa MD Hypertension active Karson Randhawa MD Dyslipidemia active Karson Randhawa MD Diabetes mellitus active Karson Randhawa MD Tobacco abuse active Karson Randhawa MD Diverticulitis active Karson Randhawa MD Intermittent claudication, right leg completed - Junior Ray Leg pain, right completed - Junior Ray COVID-19 vaccination active Junior rodríguez [employer] Cardiology examination active Karson Shin ENCOUNTERS Date Type Provider Location Encounter Diag nosis - In-person encounter Office Visit Karson Randhawa MD [facility] [place] [facility] Cardiology examination - In-person encounter Office Visit Karson Randhawa MD [facility] - In-person encounter Office Visit Karson Randhawa MD [facility] - In-person encounter Office Visit Karson Randhawa MD [facility] - In-person encounter Office Visit Karson Randhawa MD [facility] - In-person encounter Office Visit Karson Randhawa MD [facility] COVID-19 vaccination - In-person encounter Office Visit Karson Randhawa MD [facility] Intermittent claudication, right legLeg pain, right - In-person encounter Office Visit Karson Randhawa MD [facility] - In-person encounter Office Visit Karson Randhawa MD [facility] - In-person encounter Office Visit Karson Randhawa MD [facility] CADHypertensionDyslipidemiaDiabetes mellitusTobacco abuseDiverticulitis VITAL SIGNS Date Observation Value Provider Body Mass Index (Ratio) 27.94 kg/m2 Karson Randhawa MD blood pressure, cuff size regular Zane urbina Salmeron blood pressure, diastolic 90 mm[Hg] Ta ciara Salmeron blood pressure, systolic 132 mm[Hg] [facility] oxygen saturation, oximetry 98 % Manasa Salmeron respiratory rate E&M 12 /min Manasa Salmeron pulse rate 71 /min Manasa Salmeron weight E&M 183.8 [lb_av] Manasa Salmeron height E&M 68 [in_i] Manasa Salmeron Body Mass Index (Ratio) 27.82 kg/m2 Jacklyn valencia Lay blood pressure, diastolic 96 mm[Hg] Delicia Grissom blood pressure, systolic 139 mm[Hg] Hay jose Grissom oxygen saturation, oximetry 98 % Rose Grissom pulse rate 69 /min Rose shin weight E&M 183 [lb_av] Rose shin respiratory rate E&M 16 /min Heidi delvalle [place] blood pressure, cuff size large Delicia perez [place] height E&M 68 [in_i] Rose Earnest shin Body Mass Index (Ratio) 27.82 kg/m2 Forrest Merrillyaniv blood pressure, cuff size large James rri Gruenenfelder blood pressure, diastolic 80 mm[Hg] Ke rri Gruenenfelder blood pressure, systolic 142 mm[Hg] Filomena ri Gruenenfelder oxygen saturation, oximetry 97 % Razia Gruenenfelder respiratory rate E&M 16 /min Razia G maydaenenfelder pulse rate 76 /min Razia Grgianfranconenfe lder weight E&M 183 [lb_av] Razia Gruenenfe lder height E&M 68 [in_i] Razia Gruenenfe lder Body Mass Index (Ratio) 28.89 kg/m2 Suzette Kotharimevasu blood pressure, diastolic 93 mm[Hg] Sa ra Ledezma blood pressure, systolic 141 mm[Hg] Christopher a Ledezma respiratory rate E&M 19 /min Jacklyn Si ms oxygen saturation, oximetry 98 % Jacklyn Ledezma pulse rate 86 /min Jacklyn Ledezma weight E&M 190 [lb_av] Jacklyn Ledezma height E&M 68 [in_i] Jacklyn Ledezma weight E&M 174 [lb_av] Carrillo gallagher Body Mass Index (Ratio) 28.13 kg/m2 Suzette zuleyma Sheppard blood pressure, diastolic 80 mm[Hg] Li nkLogic blood pressure, systolic 144 mm[Hg] Britney kLogic blood pressure, resting Yes Pato ty [place] blood pressure, cuff size regular Scott Alva blood pressure, diastolic 80 mm[Hg] Scott Alvaby blood pressure, systolic 144 mm[Hg] Ema nichols pulse rate 74 /min Dede Alva oxygen saturation, oximetry 98 % Dede Alva respiratory rate E&M 19 /min Dede Alva weight E&M 185 [lb_av] Dede Alva height E&M 68 [in_i] Dede [place] Body Mass Index (Ratio) 27.67 kg/m2 Odell mackenzie [facility] blood pressure, cuff size large James rri [facility] blood pressure, diastolic 96 mm[Hg] James rri [facility] blood pressure, systolic 146 mm[Hg] Filomena adeel Holloway oxygen saturation, oximetry 98 % Razia [place] respiratory rate E&M 16 /min Razia hernandez pulse rate 72 /min Razia Way [facility] weight E&M 182 [lb_av] Razia Christophere [facility] height E&M 68 [in_i] Razia Bhupindernenfe [facility] Body Mass Index (Ratio) 25.39 kg/m2 Odell Ray pulse rate 67 /min [facility] respiratory rate E&M 16 /min [facility] Enriquez oxygen saturation, oximetry 98 % Tonsha Enriquez blood pressure, diastolic, left arm 86 mm [Hg] Tonsha Enriquez blood pressure, systolic, left arm 116 mm [Hg] Tonsha Enriquez blood pressure, diastolic, right arm 88 m m[Hg] Tonsha Enriquez blood pressure, systolic, right arm 127 m m[Hg] [facility] blood pressure, diastolic 86 mm[Hg] To [facility] blood pressure, systolic 116 mm[Hg] Ton spring Enriquez weight E&M 167 [lb_av] [facility] height E&M 68 [in_i] [facility] temperature site temporal Mercedes Tank sley temperature E&M 97.7 [degF] Mercedes Tanks aneta Body Mass Index (Ratio) 26.15 kg/m2 Odell Ray blood pressure, cuff size regular Cr alexandr Childress blood pressure, diastolic, supine 88 mm[H g] Radha Childress blood pressure, systolic, supine E&M 130 mm[Hg] Radha Childress blood pressure, diastolic 90 mm[Hg] Cr alexandr Childress blood pressure, systolic 130 mm[Hg] Cry shon Childress oxygen saturation, oximetry 98 % Radha Childress respiratory rate E&M 17 /min Radha Childress pulse rate 68 /min Radha Quinteros s weight E&M 172 [lb_av] Radha Quinteros s height E&M 68 [in_i] Radha Quinteros s Body Mass Index (Ratio) 27.21 kg/m2 Odell Ray blood pressure, cuff size regular Cy barry Vilchis blood pressure, diastolic 78 mm[Hg] Cy waynea Deng blood pressure, systolic 120 mm[Hg] Lizy isra Vilchis oxygen saturation, oximetry 97 % Wendy Vilchis respiratory rate E&M 16 /min Wendy Vilchis pulse rate 71 /min Wendy Geronimobel l weight E&M 179 [lb_av] Wendy Campbel l height E&M 68 [in_i] Wendy Campbel l Body Mass Index (Ratio) 26.61 kg/m2 Odell Ray blood pressure, resting Yes Madhu Buitrago oxygen saturation, oximetry 98 % Archana Buitrago respiratory rate E&M 16 /min Roberta Buitrago blood pressure, diastolic 72 mm[Hg] Leeroy Buitrago blood pressure, systolic 116 mm[Hg] Wen Buitrago pulse rate 63 /min Archana Buitrago height E&M 68 [in_i] Archana Buitrago weight E&M 175 [lb_av] [facility] Iftikhar ALLERGIES No Known Drug Allergies RESULTS Date Observation Value Provider Reference Range Interpretation Location 8 LDL cholesterol, serum 75 mg/dL Junior Ray 2 hemoglobin A1C, blood, as % of total hemoglobin 5.6 % Junior [facility] HISTORY OF MEDICATION USE Medication Status Instructions Dates Provider Indications Com ments ezetimibe 10 mg tablet active TAKE 1 TABLET BY MOUTH EVERY DAY 11/08 Jose Luis Lopez ezetimibe 10 mg tablet completed - 11/08 Jose Luis Lopez metoprolol succinate 50 mg tablet extended release 24 hr active TAKE 1 TABLET BY MOUTH EVERY DAY 12/03 [facility] ezetimibe 10 mg tablet completed TAKE 1 TABLET BY MOUTH EVERY DAY 11/03 - 01/06 Manasa Salmeron rosuvastatin 40 mg tablet active TAKE 1 TABLET BY MOUTH EVERY DAY 09/07 Razia Chung rosuvastatin 40 mg tablet completed Take 1 tablet by mouth once a day 10/18 - 09/07 [facility] Zetia 10 mg tablet completed Take 1 tablet by mouth once a day 11/19 - 11/03 [facility] Chantix Starting Month Box 0.5 mg (11)- 1 mg (42) tablets,dose pack completed Take 0.5-1 tablet by mouth as directed Take 0.5 mg tablet once daily for 3 days, then 0.5 mg tablet twice daily for 4 days, then 1 mg tablet twice daily Start 1 week prior to quit date 11/19 - 01/06 Manasa Salmeron rosuvastatin 40 mg tablet completed TAKE ONE TABLET BY MOUTH EVERY DAY 09/20 - 10/18 Razia Roegiftyab Pepcid 20 mg tablet active Dede Bell lisinopril 10 mg tablet active 1 tablet by mouth once a day 09/02 Karson Randhawa MD #30, 30 days supply, Prescribed by JAIR KWON, Filled 12/28/2019 aspirin 81 mg tablet,delayed release (DR/EC) active 1 tablet by mouth once a day 01/18 Karson Randhawa MD Toprol XL 50 mg tablet extended release 24 hr completed Take 1 tablet by mouth once a day 09/22 - 12/03 Michael Ott #90, 90 days supply, Prescribed by JAIR KWON, Filled 07/22/2018 hydrochlorothiazide 12.5 mg capsule active 1 tablet by mouth once a day 09/22 Archana Buitrago #90, 90 days supply, Prescribed by JAIR KWON, Filled 07/22/2018 metformin 500 mg tablet active 1 tablet by mouth every other day 09/08 Wendy Vilchis #30, 30 days supply, Prescribed by JAIR KWON, Filled 09/09/2018 rosuvastatin 40 mg tablet completed Take 1 tablet by mouth once a day 09/20 - 09/20 Devyn Reaves Dose increased from 20mg daily to 40mg daily on 10/07/2018 SOCIAL HISTORY Date Observation Value Provider smoking/tobacco cess ation, patient education and counseling yes Karson Randhawa MD number of years as a smoker 45+ Karson Randhawa MD cigarette use yes Karson Randhawa MD smoking status Current every day smoker Chavez Randhawa MD social history E&M S moking History: P atient currently smokes every day. P atient has been counseled to quit. Roshni Lay social history reviewed E&M revi ewed - no changes required Roshni Lay smoking/tobacco cess ation, patient education and counseling yes Rose Grissom number of years as a smoker 45+ Rose Grissom cigarette use yes Rose Tavarez nd smoking status Current every day smoker Lara Grissom social history E&M S moking History: P atient currently smokes every day. P atient has been counseled to quit. Forrest Soni social history reviewed E&M revi ewed - no changes required Forrest Soni smoking/tobacco cess ation, patient education and counseling yes Razia Chung number of years as a smoker 45+ Razia Chung cigarette use yes Razia peña smoking status Current every day smoker K byron Chung social history reviewed E&M revi ewed - no changes required Karson Randhawa MD social history E&M S moking History: P atient currently smokes every day. P atient has been counseled to quit. Karson Randhawa MD social history reviewed E&M revi ewed - no changes required Karson Randhawa MD smoking/tobacco cess ation, patient education and counseling yes Dede Bell number of years as a smoker 45+ Dede Bell cigarette use yes Dede Bell smoking status Current every day smoker Tanisha fletcher Ray social history reviewed E&M revi ewed - no changes required Junior Ray smoking/tobacco cess ation, patient education and counseling yes Razia Chung number of years as a smoker 45+ Razia Chung cigarette use yes Razia peña smoking status Current every day smoker K byron Chung social history reviewed E&M revi ewed - no changes required Junior [facility] smoking/tobacco cess ation, patient education and counseling yes Sravanthi Enriquez number of years as a smoker 45+ Junior [facility] cigarette use yes Sravanthi Enriquez smoking status Current every day smoker T malu Enriquez number of years as a smoker 45 a Junior [facility] smoking status Current every day smoker A roly [facility] smoking/tobacco cess ation, patient education and counseling yes Karson Randhawa MD social history reviewed E&M revi ewed - no changes required Karson Randhawa MD cigarette use yes Radha Braga social history reviewed E&M revi ewed - no changes required [facility] smoking/tobacco cess ation, patient education and counseling yes Wendy Vilchis number of years as a smoker 45 a Wendy Vilchis cigarette use yes Wendy powell smoking status Current every day smoker Alec haileyjesse Deng social history E&M Smoking Histo ry: P atient currently smokes every day. P atient has been counseled to quit. Karson Randhawa MD social history reviewed E&M revi ewed - no changes required Karson Randhawa MD smoking/tobacco cess ation, patient education and counseling yes Karson Randhawa MD number of years as a smoker 45 a Archana Buitrago cigarette use yes Archana Buitrago smoking status Current every day smoker C philiptrung Iftikhar FUNCTIONAL STATUS Date Observation Value Provider HRA, CV Assess/Plan, Angina (inactive) Management Plan continue current therapy Karson Randhawa MD HRA, CV Assess/Plan, Angina (inactive) Management Plan continue current therapy Forrest Soni HRA, CV Assess/Plan, Angina (inactive) Management Plan continue current therapy Karson Randhawa MD HRA, CV Assess/Plan, Angina (inactive) Management Plan continue current therapy Karson Randhawa MD HRA, CV Assess/Plan, Angina (inactive) Management Plan continue current therapy Junior Ray HRA, CV Assess/Plan, Angina (inactive) Management Plan continue current therapy Junior Ray HRA, CV Assess/Plan, Angina (inactive) Management Plan continue current therapy Karson Randhawa MD HRA, CV Assess/Plan, Angina (inactive) Management Plan continue current therapy Karson Randhawa MD HRA, CV Assess/Plan, Angina (inactive) Management Plan continue current therapy Karson Randhawa MD FAMILY HISTORY Family Member Condition Mother Family History of CV A or Stroke: Father Family History of Co ngestive Heart Failure: INSURANCE PROVIDERS Payer name Policy type / Coverage type Hugo red republican ID [employer] insurance Bizimply [id number] ADVANCE DIRECTIVES Name Date DISCUSSED - NO DECISION MADE TREATMENT PLAN Date Name Performer [id number],C,C TA was denied by insurance. The pt does not have CP or SOB. His updated medication list for this problem includes: Toprol Xl 50 Mg Tablet Extended Release 24 Hr (Metoprolol succinate) ..... Take 1 tablet by mouth once a day Lisinopril 10 Mg Tablet (Lisinopril) ..... 1 tablet by mouth once a day Aspirin 81 Mg Tablet,delayed Release (dr/ec) (Aspirin) ..... 1 tablet by mouth once a day Roshni Rosanne [id number],C,W e disscussed cessation of smoking. Roshni Lay [id number],C,H e states that BP is normal at PCP office. BP today: 139/96 P rior BP: 142/80 (05/20/2022) Labs Reviewed: L DL: 75 (08/11/2018) His updated medication list for this problem includes: Toprol Xl 50 Mg Tablet Extended Release 24 Hr (Metoprolol succinate) ..... Take 1 tablet by mouth once a day Lisinopril 10 Mg Tablet (Lisinopril) ..... 1 tablet by mouth once a day Aspirin 81 Mg Tablet,delayed Release (dr/ec) (Aspirin) ..... 1 tablet by mouth once a day Hydrochlorothiazide 12.5 Mg Capsule (Hydrochlorothiazide) ..... 1 tablet by mouth once a day Roshni Lay [id number],C, H is updated medication list for this problem includes: Lisinopril 10 Mg Tablet (Lisinopril) ..... 1 tablet by mouth once a day Metformin 500 Mg Tablet (Metformin) ..... 1 tablet by mouth every other day Aspirin 81 Mg Tablet,delayed Release (dr/ec) (Aspirin) ..... 1 tablet by mouth once a day Forrest Soni [id number],C, B P today: 142/80 P rior BP: 141/93 (11/19/2021) Labs Reviewed: L DL: 75 (08/11/2018) His updated medication list for this problem includes: Lisinopril 10 Mg Tablet (Lisinopril) ..... 1 tablet by mouth once a day Toprol Xl 50 Mg Tablet Extended Release 24 Hr (Metoprolol succinate) ..... 1 tablet by mouth once a day Aspirin 81 Mg Tablet,delayed Release (dr/ec) (Aspirin) ..... 1 tablet by mouth once a day Hydrochlorothiazide 12.5 Mg Capsule (Hydrochlorothiazide) ..... 1 tablet by mouth once a day Forrest Soni [id number],C, S khadra advised the patient to stop smoking. He did not attenot chantix, recommended he start this to help cessation. Forrest Soni [id number],C,C alcium score 1152, will check coronary CTA as insurance denied cath Forrest Soni [id number],C, P t denies chest pain or SOB. His updated medication list for this problem includes: Lisinopril 10 Mg Tablet (Lisinopril) ..... 1 tablet by mouth once a day Toprol Xl 50 Mg Tablet Extended Release 24 Hr (Metoprolol succinate) ..... 1 tablet by mouth once a day Aspirin 81 Mg Tablet,delayed Release (dr/ec) (Aspirin) ..... 1 tablet by mouth once a day Maria Sheppard [id number],C, H is updated medication list for this problem includes: Lisinopril 10 Mg Tablet (Lisinopril) ..... 1 tablet by mouth once a day Metformin 500 Mg Tablet (Metformin) ..... 1 tablet by mouth every other day Aspirin 81 Mg Tablet,delayed Release (dr/ec) (Aspirin) ..... 1 tablet by mouth once a day Maria Sheppard [id number],C, S khadra advised the patient to stop smoking. Will prescribe him Chantix. Maria Sheppard [id number],C, BP is still elevated will increase Toprol to 50 mg daily. H is updated medication list for this problem includes: Lisinopril 10 Mg Tablet (Lisinopril) ..... 1 tablet by mouth once a day Toprol Xl 50 Mg Tablet Extended Release 24 Hr (Metoprolol succinate) ..... 1 tablet by mouth once a day Aspirin 81 Mg Tablet,delayed Release (dr/ec) (Aspirin) ..... 1 tablet by mouth once a day Hydrochlorothiazide 12.5 Mg Capsule (Hydrochlorothiazide) ..... 1 tablet by mouth once a day BP today: 141/93 P rior BP: 144/80 (05/09/2021) Labs Reviewed: L DL: 75 (08/11/2018) Maria Sheppard [id number],C,L DL is 72. Will add Zetia 10 mg daily. H is updated medication list for this problem includes: Rosuvastatin 40 Mg Tablet (Rosuvastatin) ..... Take one tablet by mouth every day Maria Sheppard [id number],S, Maria cespedes [id number],S, E ncouraged pt to quit. Maria Sheppard [id number],C, H is updated medication list for this problem includes: Lisinopril 2.5 Mg Tablet (Lisinopril) ..... 1 tablet by mouth once a day Metformin 500 Mg Tablet (Metformin) ..... 1 tablet by mouth every other day Aspirin 81 Mg Tablet,delayed Release (dr/ec) (Aspirin) ..... 1 tablet by mouth once a day Mariazuleyma Kotharialma [id number],C, H is updated medication list for this problem includes: Rosuvastatin 40 Mg Tablet (Rosuvastatin) ..... Take 1 tablet by mouth once a day Maria Valarie [id number],C, B P today: 144/80 P rior BP: 146/96 (12/06/2020) Labs Reviewed: L DL: 75 (08/11/2018) His updated medication list for this problem includes: Lisinopril 2.5 Mg Tablet (Lisinopril) ..... 1 tablet by mouth once a day Aspirin 81 Mg Tablet,delayed Release (dr/ec) (Aspirin) ..... 1 tablet by mouth once a day Toprol Xl 25 Mg Tablet Extended Release 24 Hr (Metoprolol succinate) ..... 1 tablet by mouth once a day Hydrochlorothiazide 12.5 Mg Capsule (Hydrochlorothiazide) ..... 1 tablet by mouth once a day Mariazuleyma Kotharialma [id number],C,C alcium score was 1152, he still is asymptomatic. However if view of markedly abnormal calcium score, I recommend a left heart cath. H is updated medication list for this problem includes: Lisinopril 2.5 Mg Tablet (Lisinopril) ..... 1 tablet by mouth once a day Aspirin 81 Mg Tablet,delayed Release (dr/ec) (Aspirin) ..... 1 tablet by mouth once a day Toprol Xl 25 Mg Tablet Extended Release 24 Hr (Metoprolol succinate) ..... 1 tablet by mouth once a day Maria Jacobsalma Cardiology: H is updated medication list for this problem includes: Lisinopril 10 Mg Tablet (Lisinopril) ..... 1 tablet by mouth once a day Metformin 500 Mg Tablet (Metformin) ..... 1 tablet by mouth every other day Aspirin 81 Mg Tablet,delayed Release (dr/ec) (Aspirin) ..... 1 tablet by mouth once a day Karson Randhawa MD Cardiology: Oleg delvalle disscussed cessation of smoking. Karson Randhawa MD Cardiology: T he following medications were removed from the medication list: Ezetimibe 10 Mg Tablet (Ezetimibe) ..... Take 1 tablet by mouth every day His updated medication list for this problem includes: Ezetimibe 10 Mg Tablet (Ezetimibe) Rosuvastatin 40 Mg Tablet (Rosuvastatin) ..... Take 1 tablet by mouth every day Karson Randhawa MD Cardiology: B P today: 132/90 P rior BP: 139/96 (01/15/2023) Labs Reviewed: L DL: 75 (08/11/2018) His updated medication list for this problem includes: Metoprolol Succinate 50 Mg Tablet Extended Release 24 Hr (Metoprolol succinate) ..... Take 1 tablet by mouth every day Lisinopril 10 Mg Tablet (Lisinopril) ..... 1 tablet by mouth once a day Aspirin 81 Mg Tablet,delayed Release (dr/ec) (Aspirin) ..... 1 tablet by mouth once a day Hydrochlorothiazide 12.5 Mg Capsule (Hydrochlorothiazide) ..... 1 tablet by mouth once a day Karson Randhawa MD Cardiology:Doing wel l. No CP or SOB. No new complaints. Reviewed medications. BP controlled. H is updated medication list for this problem includes: Metoprolol Succinate 50 Mg Tablet Extended Release 24 Hr (Metoprolol succinate) ..... Take 1 tablet by mouth every day Lisinopril 10 Mg Tablet (Lisinopril) ..... 1 tablet by mouth once a day Aspirin 81 Mg Tablet,delayed Release (dr/ec) (Aspirin) ..... 1 tablet by mouth once a day Karson Randhawa MD Cardiology:CTA was d enied by insurance. The pt does not have CP or SOB. His updated medication list for this problem includes: Toprol Xl 50 Mg Tablet Extended Release 24 Hr (Metoprolol succinate) ..... Take 1 tablet by mouth once a day Lisinopril 10 Mg Tablet (Lisinopril) ..... 1 tablet by mouth once a day Aspirin 81 Mg Tablet,delayed Release (dr/ec) (Aspirin) ..... 1 tablet by mouth once a day Roshni Lay Cardiology:We disscu ssed cessation of smoking. Roshni Lay Cardiology:He states that BP is normal at PCP office. BP today: 139/96 P rior BP: 142/80 (05/20/2022) Labs Reviewed: L DL: 75 (08/11/2018) His updated medication list for this problem includes: Toprol Xl 50 Mg Tablet Extended Release 24 Hr (Metoprolol succinate) ..... Take 1 tablet by mouth once a day Lisinopril 10 Mg Tablet (Lisinopril) ..... 1 tablet by mouth once a day Aspirin 81 Mg Tablet,delayed Release (dr/ec) (Aspirin) ..... 1 tablet by mouth once a day Hydrochlorothiazide 12.5 Mg Capsule (Hydrochlorothiazide) ..... 1 tablet by mouth once a day Roshni Lay Cardiology: H is updated medication list for this problem includes: Lisinopril 10 Mg Tablet (Lisinopril) ..... 1 tablet by mouth once a day Metformin 500 Mg Tablet (Metformin) ..... 1 tablet by mouth every other day Aspirin 81 Mg Tablet,delayed Release (dr/ec) (Aspirin) ..... 1 tablet by mouth once a day Forrest Soni Cardiology: B P today: 142/80 P rior BP: 141/93 (11/19/2021) Labs Reviewed: L DL: 75 (08/11/2018) His updated medication list for this problem includes: Lisinopril 10 Mg Tablet (Lisinopril) ..... 1 tablet by mouth once a day Toprol Xl 50 Mg Tablet Extended Release 24 Hr (Metoprolol succinate) ..... 1 tablet by mouth once a day Aspirin 81 Mg Tablet,delayed Release (dr/ec) (Aspirin) ..... 1 tablet by mouth once a day Hydrochlorothiazide 12.5 Mg Capsule (Hydrochlorothiazide) ..... 1 tablet by mouth once a day Forrest Oliverajoy Cardiology: Carlos gaviria advised the patient to stop smoking. He did not attenot chantix, recommended he start this to help cessation. Forrest Ahfantasma Cardiology:Calcium s [facility] [place]2, will check coronary CTA as insurance denied cath Forrest Ahfantasma Cardiology: P t denies chest pain or SOB. His updated medication list for this problem includes: Lisinopril 10 Mg Tablet (Lisinopril) ..... 1 tablet by mouth once a day Toprol Xl 50 Mg Tablet Extended Release 24 Hr (Metoprolol succinate) ..... 1 tablet by mouth once a day Aspirin 81 Mg Tablet,delayed Release (dr/ec) (Aspirin) ..... 1 tablet by mouth once a day Maria Sheppard Cardiology: H is updated medication list for this problem includes: Lisinopril 10 Mg Tablet (Lisinopril) ..... 1 tablet by mouth once a day Metformin 500 Mg Tablet (Metformin) ..... 1 tablet by mouth every other day Aspirin 81 Mg Tablet,delayed Release (dr/ec) (Aspirin) ..... 1 tablet by mouth once a day [facility]: Carlos gaviria advised the patient to stop smoking. Will prescribe him Chantix. [facility]: BP is st ill elevated will increase Toprol to 50 mg daily. H is updated medication list for this problem includes: Lisinopril 10 Mg Tablet (Lisinopril) ..... 1 tablet by mouth once a day Toprol Xl 50 Mg Tablet Extended Release 24 Hr (Metoprolol succinate) ..... 1 tablet by mouth once a day Aspirin 81 Mg Tablet,delayed Release (dr/ec) (Aspirin) ..... 1 tablet by mouth once a day Hydrochlorothiazide 12.5 Mg Capsule (Hydrochlorothiazide) ..... 1 tablet by mouth once a day BP today: 141/93 P rior BP: 144/80 (05/09/2021) Labs Reviewed: L DL: 75 (08/11/2018) [facility]:LDL is 72 . Will add Zetia 10 mg daily. H is updated medication list for this problem includes: Rosuvastatin 40 Mg Tablet (Rosuvastatin) ..... Take one tablet by mouth every day [facility]: E ncouraged pt to quit. [facility]: H is updated medication list for this problem includes: Lisinopril 2.5 Mg Tablet (Lisinopril) ..... 1 tablet by mouth once a day Metformin 500 Mg Tablet (Metformin) ..... 1 tablet by mouth every other day Aspirin 81 Mg Tablet,delayed Release (dr/ec) (Aspirin) ..... 1 tablet by mouth once a day [facility]: H is updated medication list for this problem includes: Rosuvastatin 40 Mg Tablet (Rosuvastatin) ..... Take 1 tablet by mouth once a day [facility]: B P today: 144/80 P rior BP: 146/96 (12/06/2020) Labs Reviewed: L DL: 75 (08/11/2018) His updated medication list for this problem includes: Lisinopril 2.5 Mg Tablet (Lisinopril) ..... 1 tablet by mouth once a day Aspirin 81 Mg Tablet,delayed Release (dr/ec) (Aspirin) ..... 1 tablet by mouth once a day Toprol Xl 25 Mg Tablet Extended Release 24 Hr (Metoprolol succinate) ..... 1 tablet by mouth once a day Hydrochlorothiazide 12.5 Mg Capsule (Hydrochlorothiazide) ..... 1 tablet by mouth once a day [facility]:Calcium s core was 1152, he still is asymptomatic. However if view of markedly abnormal calcium score, I recommend a left heart cath. H is updated medication list for this problem includes: Lisinopril 2.5 Mg Tablet (Lisinopril) ..... 1 tablet by mouth once a day Aspirin 81 Mg Tablet,delayed Release (dr/ec) (Aspirin) ..... 1 tablet by mouth once a day Toprol Xl 25 Mg Tablet Extended Release 24 Hr (Metoprolol succinate) ..... 1 tablet by mouth once a day [facility] Follow up :His updated medication list for this problem includes: Lisinopril 2.5 Mg Oral Tablet (Lisinopril) ..... One tab daily Aspirin Adult Low Dose 81 Mg Oral Tablet Delayed Release (Aspirin) ..... One tab by mouth daily Metformin Hcl 500 Mg Oral Tablet (Metformin hcl) ..... One tab every other day [facility] Follow up :Recommend to keep LDL < 70. His updated medication list for this problem includes: Rosuvastatin 40 Mg* Tab Nova (Rosuvastatin calcium) ..... Take one tablet by mouth every day [facility] Follow up :BP today: 146/96 P rior BP: 116/86 (01/03/2020) His updated medication list for this problem includes: Lisinopril 2.5 Mg Oral Tablet (Lisinopril) ..... One tab daily Toprol Xl 25 Mg Oral Tablet Extended Release 24 Hour (Metoprolol succinate) ..... One tab once daily Hydrochlorothiazide 12.5 Mg Oral Capsule (Hydrochlorothiazide) ..... One tab once daily [facility] Follow up :Feeling well. No chest pain, SOB. He plans to get the CT coronary calcium score soon. Recommend to keep LDL < 70. His updated medication list for this problem includes: Lisinopril 2.5 Mg Oral Tablet (Lisinopril) ..... One tab daily Aspirin Adult Low Dose 81 Mg Oral Tablet Delayed Release (Aspirin) ..... One tab by mouth daily Toprol Xl 25 Mg Oral Tablet Extended Release 24 Hour (Metoprolol succinate) ..... One tab once daily [facility]:His [facility] ed medication list for this problem includes: Lisinopril 2.5 Mg Oral Tablet (Lisinopril) ..... One tab daily Aspirin Adult Low Dose 81 Mg Oral Tablet Delayed Release (Aspirin) ..... One tab by mouth daily Metformin Hcl 500 Mg Oral Tablet (Metformin hcl) ..... One tab every other day [facility]:Encouraged pt to quit . [facility]:No chest pain or SOB. His updated medication list for this problem includes: Lisinopril 2.5 Mg Oral Tablet (Lisinopril) ..... One tab daily Aspirin Adult Low Dose 81 Mg Oral Tablet Delayed Release (Aspirin) ..... One tab by mouth daily Toprol Xl 25 Mg Oral Tablet Extended Release 24 Hour (Metoprolol succinate) ..... One tab once daily [facility]:BP today: 116/86 P rior BP: 130/88 (01/18/2019) His updated medication list for this problem includes: Lisinopril 2.5 Mg Oral Tablet (Lisinopril) ..... One tab daily Toprol Xl 25 Mg Oral Tablet Extended Release 24 Hour (Metoprolol succinate) ..... One tab once daily Hydrochlorothiazide 12.5 Mg Oral Capsule (Hydrochlorothiazide) ..... One tab once daily [facility]:Goal LDL is < 70. His updated medication list for this problem includes: Rosuvastatin Calcium 40 Mg Oral Tablet (Rosuvastatin calcium) ..... Take one tablet daily [facility]:His updat ed medication list for this problem includes: Aspirin Adult Low Dose 81 Mg Oral Tablet Delayed Release (Aspirin) ..... One tab by mouth daily Metformin Hcl 500 Mg Oral Tablet (Metformin hcl) ..... One tab every other day [facility]:His updat ed medication list for this problem includes: Rosuvastatin Calcium 40 Mg Oral Tablet (Rosuvastatin calcium) ..... Take one tablet daily [facility]:BP today: 130/90 P rior BP: 120/78 (10/19/2018) His updated medication list for this problem includes: Toprol Xl 25 Mg Oral Tablet Extended Release 24 Hour (Metoprolol succinate) ..... One tab once daily Hydrochlorothiazide 12.5 Mg Oral Capsule (Hydrochlorothiazide) ..... One tab once daily [facility]:Echo and stress myoview were normal. He was advised to have CT coronary calcium score. Will continue statins and add coated baby ASA daily. His updated medication list for this problem includes: Aspirin Adult Low Dose 81 Mg Oral Tablet Delayed Release (Aspirin) ..... One tab by mouth daily Toprol Xl 25 Mg Oral Tablet Extended Release 24 Hour (Metoprolol succinate) ..... One tab once daily [facility] follow up :BP today: 120/78 P rior BP: 116/72 (10/07/2018) His updated medication list for this problem includes: Toprol Xl 25 Mg Oral Tablet Extended Release 24 Hour (Metoprolol succinate) ..... One tab once daily Hydrochlorothiazide 12.5 Mg Oral Capsule (Hydrochlorothiazide) ..... One tab once daily [facility] follow up :Orders: V enous Doppler Bilateral LE - Reflux (CPT-35241) A rterial Duplex Bi-Lower EX (CPT-58543) [facility] follow up :Pt complains of pain while walking in the right leg (wright area, more on the lateral aspect). He also had some rest pain. There's some tenderness to palpation. Will obtain SARAH's. [facility]:Strongly advised to quit. Encouraged pt to try Chantix. [facility]:BP today: 116/72 His updated medication list for this problem includes: Toprol Xl 25 Mg Oral Tablet Extended Release 24 Hour (Metoprolol succinate) ..... One tab once daily Hydrochlorothiazide 12.5 Mg Oral Capsule (Hydrochlorothiazide) ..... One tab once daily [facility]:Labs from PCP reviewed: C HOL: 137 (08/11/2018) TRI (08/11/2018) HDL 43 (08/11/2018) LDL: 75 (08/11/2018) Crestor increased from 20mg to 40mg daily. [facility]:Pt had a low-radiation CT as screening for lung cancer. There was an incidental finding of extensive coronary calcifications. He has multiple risk factors including tobacco use, DM and dyslipidemia. He denies chest pain, SOB or prior cardiac hx. Orders: E KG (CPT-93354) C omplete Echo (CPT-46299) S tress Exercise Cardiolite (CPT-28208) C T, Coronary Calcium Score (CPT-16172) [facility]:Labs from PCP reviewed: H gA1c: 5.6% (11/13/2017) His updated medication list for this problem includes: Metformin Hcl 500 Mg Oral Tablet (Metformin hcl) ..... One tab once daily [facility] Date Name Creatinine, Serum CT Angio Coronaries RPM (remote patient monitoring) Complete Echo PROTHROMBIN TIME WIT H INR LIPID PANEL CBC (INCLUDES DIFF/P LT) BASIC METABOLIC PANE L W/EGFR Cardiac Cath - Left - [facility] CT, Coronary Calcium Score Arterial Duplex Bi-L ower EX Venous Doppler Bilat eral LE - Reflux CT, Coronary Calcium Score Stress Exercise Card iolite Complete Echo HISTORY OF PROCEDURES Procedure Date Procedure Name Provider Procedure Notes S tatus EKG Karson Randhawa MD completed EKG Karson Randhawa MD completed EKG Karson Randhawa MD completed CT- Coronary CA score Karson Randhawa MD completed EKG Karson Randhawa MD completed Cardiolite, 2 units Karson Randhawa MD c ompleted SPECT Images Callum Portillo MD complet ed Stress EKG Kamran Mcelroy MD complete d EKG Karson Randhawa MD completed EKG Karson Randhawa MD completed
--- OUTSIDE RECORDS SUMMARY | 2024-12-10 08:07 | XMS_ITS | Encounter Summary ---
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 Name Role Phone Ada Apple MD Primary Care Provider Encounter Details Date Type Department Care Team (Late Contact Info) Description 12/09/2024 Orders Only [facility] [address] [place] [address] Rene Garcia MD [facility] [employer] [address] [place] [id number] Erythrocytosis (Primary Dx) Social History Tobacco Use Types Packs/Day Years Used Date Smoking Tobacco: Every Day Cigarettes 1 41 Started: 12/09/1983 Smokeless Tobacco: Never Alcohol Use Standard Drinks/Week Comments Yes 0 (1 standard drink = 0.6 oz pur e alcohol) occasional Sex and Gender Information Value Date Recorded Sex Assigned at Not on file 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 Gender Identity Not on file Sexual Orientation Not on file documented as of this encounter Plan of Treatment Upcoming Encounters Date Type Department Care Team (Late st Contact Info) Description 12/10/2024 8:30 AM CDT Office Visit [facility] - [address] [place] [address] Rene Garcia MD [address] [place] [address] Scheduled Orders Name Type Priority Associated Diagnoses Orde r Schedule BASIC METABOLIC PANEL Lab Routine Erythrocytosis Expected: 12/09/2024, Expires: 12/09/2025 CBC WITH DIFFERENTIAL Lab Routine Erythrocytosis Expected: 12/09/2024, Expires: 12/09/2025 documented as of this encounter Visit Diagnoses Diagnosis Erythrocytosis- Primary Reserved for inherently not codable concepts WITHOUT codable children documented in this encounter Care Teams Furniture Mover Driver Relationship Specialty Start Date End Date Ada Apple MD PCP - General Internal Medicine 09/29/20 documented as of this encounter
[2024-12-10 08:23] LABS: Basophils Absolute Auto 0.1 K/mm3 (0.0-0.1); Basophils Percent Auto 0.8 % (0.2-1.2); Eosinophils Absolute Auto 0.2 K/mm3 (0-0.3); Eosinophils Percent Auto 2.8 % (0-4.4); Hematocrit 47.1 % (42.0-52.0); Hemoglobin 16.3 g/dL (14.0-18.0); Immature Granulocyte Absolute 0.03 K/mm3 (0.00-0.031); Immature Granulocyte Percent A 0.4 % (0-0.5); Lymphocytes Absolute Auto 1.53 K/mm3 (0.9-3.2); Lymphocytes Percent Auto 21.3 % (18.3-44.2); Mean Corpuscular HGB Conc 34.6 g/dl (32-36); Mean Corpuscular Hemoglobin 31.5 pg (26-34); Mean Corpuscular Volume 90.9 fl (80-100); Mean Platelet Volume 8.9 fl (7.4-10.4); Monocytes Absolute Auto 0.8 K/mm3 (0.1-0.6); Monocytes Percent Auto 11.5 % (2.6-8.5); Neutrophils Absolute Auto 4.5 K/mm3 (1.3-6.7); Neutrophils Percent Auto 63.2 % (45.5-73.1); Platelet Count Result 265 k/mm3 (150-375); Red Blood Count 5.18 M/mm3 (4.6-6.20); Red Cell Distribution Width 12.5 % (11.5-14.5); White Blood Count 7.2 K/mm3 (4.5-10.0)
[2024-12-10 08:27] LABS: Blood Urea Nitrogen 16 mg/dL (8-26); Carbon Dioxide 23 mmol/L (22-30); Chloride 102 mmol/L (98-109); Estimated Glomerular Filt Rate > 60; Glucose 129 mg/dL (70-105); Ionized Calcium (POC) 1.15 mmol/L (1.11-1.31); Potassium 3.9 mmol/L (3.5-4.9); Sodium 139 mmol/L (138-146)
== END 2024-12-10 08:04 | disposition home or self-care (01) ==
PROVIDERS: PCP Internal Medicine; Visit Provider Internal Medicine Hematology & Oncology
DX: D75.1 Secondary polycythemia (principal)
CPT/HCPCS: 36415; 80047; 85025